=== PATIENT | male | born 1940 | race Caucasian/White ===

== ENCOUNTER 2021-11-16 23:30 | Inpatient (IN) | payer MEDICARE, OTHER ==
[~2021-11-16] VITALS: Ht 170.2 cm; Wt 91.6 kg
[2021-11-16 23:07] VITALS: BP 105/50
--- NOTE | 2021-11-16 23:07 | NUR ---
received patient from 3rd floor OVERFLOW ASHLEIGH status DX:AMS.patient came via bed . patient non verbal oxygen on venturi mask @6 liters=40% FIO2 saturation 98% rr 14,atrial fibrillation on the heart monitor rate 93 temp 99.0 F.non verbal withdraws only to painful stimuli but at times withdraws to light touch no spontaneous eye opening pupils sluggishly reactive at 1 mm in size.Ruffin catheter to bsd .
[~2021-11-16 23:30] MED LIST: ACET-2154 PO; APIX2.5T PO; ASPI81TA31 PO; CEFE1VIA3 IV; CHOL-35 PO; CLOP75TA33 PO; CYAN100T44 PO; FAMO40TA7 PO; FINA5TAB3 PO; FOLI1TAB94 PO; FURO20TA4 PO; GLIP10TA11 PO; LEVE500T9 PO; NEOM28OI32 TP; NUT.237L36 PO; OLAN5TAB3 PO; POTA-88 PO; TAMS-3 PO; THIA100T13 PO
--- NOTE | 2021-11-16 23:46 | NUR ---
DOLLY [facility] CANDY DEPARTMENT MANAGER CALLED AND HE SAID HIS GOING TO PUT ORDERS FOR THE PATIENT PATIENT IS TELE -TD STATUS .
--- NOTE | 2021-11-16 23:50 | NUR ---
fingerstick done 198 results THI BELL aware
[2021-11-17] VITALS (12 sets, daily range): BP systolic 96–167; BP diastolic 53–85
[2021-11-17] MEDS ORDERED: FUROSEMIDE 20 MG/2 ML VIAL IV ONE
[2021-11-17] MEDS ORDERED: MAGNESIUM HYDROXIDE 30 ML LIQUID UDC PO PRN
[2021-11-17] MEDS ORDERED: ACETAMINOPHEN 325 MG TABLET PO PRN
[2021-11-17] MEDS ORDERED: ACETAMINOPHEN 650 MG SUPP.RECT RC PRN
[2021-11-17] MEDS ORDERED: ONDANSETRON 4 MG/2 ML VIAL IV PRN
--- NOTE | 2021-11-17 00:30 | NUR ---
escorted patient via bed with heart monitor ,oxygen and with septic technician for stat CAT-SCAN of the head dx: ams.tolerated test and patient back to his room .
--- NOTE | 2021-11-17 02:00 | NUR ---
pts. called updated with patient ,location bed cc3 informed about visiting hours ,as per she was here yesterday patient was able to eat lunch pts.condition deteriorated during the afternoon . she said she will visit patients today .
--- NOTE | 2021-11-17 03:24 | NUR ---
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
[2021-11-17 05:08] LABS: HEMATOCRIT 29.8 % (36.7-47.1); MEAN CORPUSCULAR HEMOGLOBIN 28.6 uug (23.8-33.4); MEAN CORPUSCULAR VOLUME 88.4 fL (73.0-96.2); PLATELET COUNT (AUTO) 306 K/uL (152-348)
[2021-11-17 05:23] LABS: ALANINE AMINOTRANSFERASE 14 U/L (16-63); ALKALINE PHOSPHATASE 84 U/L (50-136); ASPARTATE AMINOTRANSFERASE 6 U/L (15-37); BILIRUBIN,DIRECT 0.2 mg/dL (0.0-0.2); BILIRUBIN,TOTAL 0.5 mg/dL (0.2-1.0); CARBON DIOXIDE 25 mmol/L (21-32); CHLORIDE 109 mmol/L (98-107); CREATININE 1.7 mg/dL (0.6-1.3); GLUCOSE 189 mg/dL (74-106); MAGNESIUM 1.8 mg/dL (1.8-2.4); PHOSPHOROUS 3.9 mg/dL (2.5-4.9); POTASSIUM 4.7 mmol/L (3.5-5.1); UREA NITROGEN, BLOOD 20 mg/dL (7-18)
--- NOTE | 2021-11-17 05:26 | NUR ---
TITRATE FIO2 @ 3L/M NC , @ 0500 FOR ABG TO BE DONE . Cash YEEP Addendum: 11/17/21 at 0528 by BRAYAN FORTUNE RT Amended: Links added.
[2021-11-17 05:46] LABS: ABG BASE EXCESS -1.4 mmol/L; ABG HCO3 22.1 mmol/L; ABG PCO2 32.7 mmHg (35.0-45.0); ABG PH 7.448 (7.350-7.450); ABG PO2 112.4 mmHg (75.0-100.0); ABG SITE RIGHT RADIAL; ABG TOTAL HEMOGLOBIN 10.6 G/dL (13.5-18.0); MetHb 0.2 % (0.0-1.5); O2Hb 98.3 % (94.0-97.0); VENT MODE Nasal Cannula
--- NOTE | 2021-11-17 07:00 | NUR ---
Received pt. sleeping arousable to touch, patient lethargic. On NC 2 LIter with saturation of 97%. Hemodynamically stable on controlled A-fib with SBP within desired limits. IV line patent. Will continue with care plan.
[2021-11-17] MEDS ORDERED: ALBUTEROL SULFATE 1.25 MG/3 ML NEBU NEB PRN (08:00)
--- NOTE | 2021-11-17 08:00 | NUR ---
Patient seen by car salesperson Dr. Harmon report given orders to continue with care plan received.
[2021-11-17] MEDS: PANTOPRAZOLE SODIUM 40 MG VIAL IV SCH (09:07)
[2021-11-17] MEDS: HEPARIN SODIUM,PORCINE 5,000 UNITS/ML VIAL SQ SCH ×2 (09:07→20:13)
[2021-11-17 11:33] LABS: *BILIRUBIN,URIN NEGATIVE (NEGATIVE); *BLOOD, URINE 2+ (NEGATIVE); *CLARITY,URINE CLEAR (CLEAR); *COLOR,URINE YELLOW (YELLOW); *KETONES,URINE NEGATIVE (NEGATIVE); *UROBILINOGEN,URINE 0.2 E.U./dl (NORMAL); LEUKOCYTE ESTERASE ,URINE 1+ (NEGATIVE); NITRITE, URINE NEGATIVE (NEGATIVE); PH,URINE 6.5 (5.0-8.0); UGLUCOSE NEGATIVE (NEGATIVE)
[2021-11-17 12:05] LABS: *CREATININE,URINE 65.2 mg/dL (30-125)
[2021-11-17 13:00] LABS: RBC,URINE 20-50 /HPF (0-3)
[2021-11-17 13:01] LABS: BACTERIA,URINE FEW /HPF (NONE SEEN)
[2021-11-17 13:02] LABS: SQUAMOUS EPITHELIAL CELL,UR FEW /HPF (NONE SEEN)
--- NOTE | 2021-11-17 19:22 | NUR ---
Attending physician Dr. Velarde, in the unit to see and examine pt. report given orders to continue with care plan received.
--- NOTE | 2021-11-17 20:00 | NUR ---
Racheal () called, update given.
--- NOTE | 2021-11-17 23:00 | NUR ---
Notified Dr Morrison regarding patient's BP 178/86. Per Dr Morrison, to give Vasotec 2.5mg IV Q6 PRN for SBP >150. Noted and carried out.
[2021-11-17] MEDS: REMEDY ESSENTIAL ZINC PASTE 113 GM TP PRN (23:01)
[2021-11-18] VITALS (7 sets, daily range): BP systolic 117–164; BP diastolic 65–81
[2021-11-18] MEDS: ENALAPRILAT DIHYDRATE 1.25 MG/1 ML VIAL IV PRN (02:33)
[2021-11-18 05:02] LABS: HEMATOCRIT 30.4 % (36.7-47.1); MEAN CORPUSCULAR HEMOGLOBIN 28.9 uug (23.8-33.4); MEAN CORPUSCULAR VOLUME 88.5 fL (73.0-96.2); PLATELET COUNT (AUTO) 287 K/uL (152-348)
[2021-11-18 05:24] LABS: ALANINE AMINOTRANSFERASE < 6 U/L (16-63); ALKALINE PHOSPHATASE 80 U/L (50-136); ASPARTATE AMINOTRANSFERASE < 5 U/L (15-37); BILIRUBIN,TOTAL 0.8 mg/dL (0.2-1.0); CARBON DIOXIDE 26 mmol/L (21-32); CHLORIDE 107 mmol/L (98-107); CREATININE 1.6 mg/dL (0.6-1.3); GLUCOSE 118 mg/dL (74-106); MAGNESIUM 1.7 mg/dL (1.8-2.4); PHOSPHOROUS 2.9 mg/dL (2.5-4.9); POTASSIUM 3.7 mmol/L (3.5-5.1); TOTAL PROTEIN, SERUM 6.4 g/dL (6.4-8.2); UREA NITROGEN, BLOOD 23 mg/dL (7-18)
--- NOTE | 2021-11-18 08:19 | NUR ---
Transferred patient from CCU 3 to Room 301B via hospital bed, without any incident. VSS. NAD. Report given to Guerda NATH.
[2021-11-18] MEDS: HEPARIN SODIUM,PORCINE 5,000 UNITS/ML VIAL SQ SCH (08:47)
[2021-11-18] MEDS: PANTOPRAZOLE SODIUM 40 MG VIAL IV SCH (08:47)
[2021-11-18] MEDS ORDERED: MAGNESIUM SULFATE/D5W 100 ML IV SCH (09:15)
[2021-11-18] MEDS: NITROGLYCERIN OINT 1 GM PACKET TP SCH ×4 (09:41→23:35)
[2021-11-18] MEDS ORDERED: OLANZAPINE 5 MG TABLET PO PRN (11:00)
[2021-11-18] MEDS: levETIRAcetam 500 MG TABLET PO SCH ×2 (11:02→20:54)
--- NOTE | 2021-11-18 12:00 | NUR ---
PATIENT SLIGHTLY SOB ON RA. STARTED ON O2 2-3L NC SATURATING 96%. HOSPITALIST MADE AWARE. REMAINS AFIB CONTROLLED ON MONITOR
[2021-11-18] MEDS: IV LACTATED RINGERS SOLUTION 1,000 ML IV PRN (15:31)
[2021-11-18] MEDS: APIXABAN 2.5 MG TABLET PO SCH (16:38)
--- NOTE | 2021-11-18 17:16 | NUR ---
SEEN BY SPEECH THERAPY PER DR AGUIAR CONTINUE NPO EXCEPT MEDS, TOLERATING PO MEDS WITH APPLE SAUCE. NO SIGNS OF CHOKING. NO FURTHER SOB NOTED. CONTROLLED AFIB ON MONITOR
--- NOTE | 2021-11-18 19:30 | NUR ---
Received pt awake, alert and orientedx3. Pt in no acute distress. Pt on 3l nasal cannula. Pt on controlled afib. Iv intact. Caregiver at bedside. Safety and comfort provided. Will continue to monitor.
[2021-11-18] MEDS: TAMSULOSIN HCL 0.4 MG CAP.SR.24H PO SCH (20:54)
[2021-11-18] MEDS: CLOPIDOGREL 75 MG TABLET PO SCH (20:58)
[2021-11-19] VITALS: BP 130/60
[2021-11-19 04:00] VITALS: BP 135/60
[2021-11-19] MEDS: NITROGLYCERIN OINT 1 GM PACKET TP SCH ×3 (05:37→16:50)
[2021-11-19] MEDS: REMEDY ESSENTIAL ZINC PASTE 113 GM TP PRN (05:45)
--- NOTE | 2021-11-19 05:48 | NUR ---
Pt slept comfortably. Pt in no acute distress. Iv intact. Pt on 2l nasal cannula at 98%. Pt tolerated it well. Pt turned and repositioned.Pt on sinus rhythm. Pt catheter intact and draining well.Prescribed medication given and pt tolerated it well. Pt is on npo except meds. Safety and comfort provided. All needs are met. Will endorse to incoming nurse for continuity of care.
--- NOTE | 2021-11-19 06:17 | NUR ---
Pt on controlled afib.
[2021-11-19 06:23] LABS: HEMATOCRIT 27.4 % (36.7-47.1); MEAN CORPUSCULAR HEMOGLOBIN 29.1 uug (23.8-33.4); MEAN CORPUSCULAR VOLUME 88.5 fL (73.0-96.2); PLATELET COUNT (AUTO) 253 K/uL (152-348)
[2021-11-19 06:25] LABS: CARBON DIOXIDE 28 mmol/L (21-32); CHLORIDE 107 mmol/L (98-107); CREATININE 1.5 mg/dL (0.6-1.3); GLUCOSE 110 mg/dL (74-106); PHOSPHOROUS 2.9 mg/dL (2.5-4.9); POTASSIUM 3.4 mmol/L (3.5-5.1); UREA NITROGEN, BLOOD 25 mg/dL (7-18)
[2021-11-19] MEDS: IV LACTATED RINGERS SOLUTION 1,000 ML IV PRN (06:39)
[2021-11-19 07:30] VITALS: BP 149/65
--- NOTE | 2021-11-19 08:00 | NUR ---
RECEIVED PATIENT IN BED AWAKE AND VERBALLY RESPONSIVE ON 2L NC SATURATING 96-97%. TAPERED O2 TO 1L NC AND OBSERVE. CONTROLLED AFIB ON MONITOR
[2021-11-19] MEDS: PANTOPRAZOLE SODIUM 40 MG VIAL IV SCH (08:52)
[2021-11-19] MEDS: MODAFINIL 100 MG TABLET PO SCH (08:52)
[2021-11-19] MEDS: levETIRAcetam 500 MG TABLET PO SCH ×2 (08:52→20:53)
[2021-11-19] MEDS: ASPIRIN 81 MG TAB.CHEW PO SCH (08:52)
[2021-11-19] MEDS: APIXABAN 2.5 MG TABLET PO SCH ×2 (08:53→16:49)
[2021-11-19] MEDS ORDERED: FUROSEMIDE 20 MG TABLET PO SCH (09:00)
[2021-11-19] MEDS ORDERED: POTASSIUM CHLORIDE 50 ML IV SCH (09:15)
[2021-11-19 11:55] VITALS: BP 156/77
--- NOTE | 2021-11-19 12:00 | NUR ---
NO ACUTE CHANGE FROM MORNING ASSESSMENT SEEN BY HOSPITALIST COSME SEE NOTES. PATIENT TOLERATING PUREE DIET WITH SIGNS OF ASPIRATION. CONTROLLED AFIB ON MONITOR
[2021-11-19 16:00] VITALS: BP 143/70
--- NOTE | 2021-11-19 17:28 | NUR ---
PATIENT REMAINS MORE ALERT AND VERBALLY RESPONSIVE, NO SS OF DISTRESS OR ACUTE PAIN CONTROLLED AFIB ON MONITOR
--- NOTE | 2021-11-19 19:30 | NUR ---
Received pt awake. Pt in no acute distress. Pt on 1l nasal cannula. Pt on controlled afib. Iv intact. Caregiver at bedside. Safety and comfort provided. Will continue to monitor.
[2021-11-19 20:00] VITALS: BP 130/57
[2021-11-19] MEDS: ACETAMINOPHEN 325 MG TABLET PO PRN (20:53)
[2021-11-19] MEDS: CLOPIDOGREL 75 MG TABLET PO SCH (20:53)
[2021-11-19] MEDS: TAMSULOSIN HCL 0.4 MG CAP.SR.24H PO SCH (20:53)
[2021-11-20] VITALS: BP 132/62
[2021-11-20] MEDS: NITROGLYCERIN OINT 1 GM PACKET TP SCH ×4 (00:11→17:34)
[2021-11-20 04:00] VITALS: BP 129/56
[2021-11-20] MEDS: PANTOPRAZOLE SODIUM 40 MG TABLET.DR PO SCH (06:03)
--- NOTE | 2021-11-20 06:05 | NUR ---
Pt slept intermittently. Pt in no acute distress. Prescribed medication given and pt tolerated it well. Pt on 0.5l on nasal cannula. Pt on controlled afib.Pt turned and repositioned. Safety and comfort provided. Will Endorse to incoming nurse for continuity fo care.
[2021-11-20 06:22] LABS: CARBON DIOXIDE 28 mmol/L (21-32); CHLORIDE 107 mmol/L (98-107); CREATININE 1.4 mg/dL (0.6-1.3); GLUCOSE 147 mg/dL (74-106); POTASSIUM 3.1 mmol/L (3.5-5.1); UREA NITROGEN, BLOOD 25 mg/dL (7-18)
--- NOTE | 2021-11-20 08:00 | NUR ---
AWAKE ALERT AND VERBALLY RESPONSIVE, CONFUSED X3 WITH CONTINUOUS O2 AT 1L NC SATURATING 94-96%. CONTINUE TELE OBSERVATION CONTROLLED AFIB ON MONITOR
[2021-11-20] MEDS: levETIRAcetam 500 MG TABLET PO SCH ×2 (08:15→20:16)
[2021-11-20] MEDS: ASPIRIN 81 MG TAB.CHEW PO SCH (08:15)
[2021-11-20] MEDS: MODAFINIL 100 MG TABLET PO SCH (08:15)
[2021-11-20] MEDS: APIXABAN 2.5 MG TABLET PO SCH ×2 (08:16→17:34)
[2021-11-20] MEDS ORDERED: POTASSIUM CHLORIDE 20 MEQ POWDER PACKET PO ONE (10:30)
[2021-11-20 10:59] VITALS: BP 146/70
--- NOTE | 2021-11-20 11:30 | NUR ---
SEEN BY HOSPITALIST FOR FOLLOW-UP, CONTINUE CURRENT TX PLAN PT, OT
--- NOTE | 2021-11-20 12:06 | NUR ---
catheter removed per hospitalist and observe. laila flanagan on monitor
--- NOTE | 2021-11-20 13:45 | NUR ---
CAREGIVER AT BEDSIDE FEEDING PATIENT WITH MATT AND ELIZABETH WHEN PATIENT SUDDENLY GETS SOB AND GURGLING WITH SECRETION. PLACE ON HIGH FOWLERS POSITION, SUCTIONING DONE AND OBTAINED LARGE AMOUNT OF THICK SECRETION, CHEST XRAY DONE, AWAITING FOR RESULTS. PLACED ON 3L
[2021-11-20] MEDS ORDERED: BUMETANIDE 1 MG/4 ML VIAL IV ONE (14:00)
--- NOTE | 2021-11-20 15:00 | NUR ---
PATIENT RESTING COMFORTABLY, ALERT AND VERBALLY RESPONSIVE NO SIGNS OF DISTRESS, REMAINS CONTROLLED A-FIB ON MONITOR
[2021-11-20 15:38] VITALS: BP 152/66
--- NOTE | 2021-11-20 18:09 | NUR ---
TRIED FEEDING PATIENT WITH SPOON SMALL AT A TIME WITH PUREE THICK LIQUID, PATIENT STARTED COUGHING AND GURGLING. MD NOTIFIED, AWAITING CALL BACK
[2021-11-20 20:11] VITALS: BP 115/82
[2021-11-20] MEDS: CLOPIDOGREL 75 MG TABLET PO SCH (20:16)
[2021-11-20] MEDS: TAMSULOSIN HCL 0.4 MG CAP.SR.24H PO SCH (20:16)
[2021-11-21] VITALS (7 sets, daily range): BP systolic 104–172; BP diastolic 66–84
[2021-11-21] MEDS: ENALAPRILAT DIHYDRATE 1.25 MG/1 ML VIAL IV PRN (00:40)
[2021-11-21] MEDS: NITROGLYCERIN OINT 1 GM PACKET TP SCH ×4 (00:40→18:09)
[2021-11-21] MEDS: PANTOPRAZOLE SODIUM 40 MG TABLET.DR PO SCH (06:15)
--- NOTE | 2021-11-21 06:15 | NUR ---
Pt rested well in between care; no acute distress; incontinence care done; aspiration precaution observed; protonix po not given because it can not be crushed; will endorse to next shift for substitute;
[2021-11-21 06:41] LABS: CARBON DIOXIDE 29 mmol/L (21-32); CHLORIDE 107 mmol/L (98-107); CREATININE 1.6 mg/dL (0.6-1.3); GLUCOSE 257 mg/dL (74-106); POTASSIUM 3.8 mmol/L (3.5-5.1); UREA NITROGEN, BLOOD 26 mg/dL (7-18)
[2021-11-21] MEDS: MODAFINIL 100 MG TABLET PO SCH (08:57)
[2021-11-21] MEDS: ASPIRIN 81 MG TAB.CHEW PO SCH (09:00)
[2021-11-21] MEDS: levETIRAcetam 500 MG TABLET PO SCH ×2 (09:00→20:18)
[2021-11-21] MEDS: APIXABAN 2.5 MG TABLET PO SCH ×2 (09:04→18:04)
[2021-11-21 09:31] LABS: HEMATOCRIT 29.9 % (36.7-47.1); MEAN CORPUSCULAR HEMOGLOBIN 28.6 uug (23.8-33.4); MEAN CORPUSCULAR VOLUME 88.9 fL (73.0-96.2); PLATELET COUNT (AUTO) 334 K/uL (152-348)
[2021-11-21 09:37] LABS: MAGNESIUM 1.8 mg/dL (1.8-2.4); PHOSPHOROUS 3.5 mg/dL (2.5-4.9)
[2021-11-21] MEDS ORDERED: CEFTRIAXONE 1 G in IV DEXTROSE 5% 50 ML IV SCH ×2 (15:00→16:00)
[2021-11-21] MEDS: IV LACTATED RINGERS SOLUTION 1,000 ML IV PRN (17:02)
[2021-11-21] MEDS: GLUCERNA SHAKE 237 ML CAN PO SCH (18:02)
[2021-11-21] MEDS: TAMSULOSIN HCL 0.4 MG CAP.SR.24H PO SCH (20:17)
[2021-11-21] MEDS: CLOPIDOGREL 75 MG TABLET PO SCH (20:18)
--- NOTE | 2021-11-21 20:30 | NUR ---
Pt comfortable in bed. Caregiver on bedside. Pt is on 1 LPM/NC saturating at 95%. No SOB or respiratory distress noted. VSS. IV intact and patent. All needs attended. Safety measures maintained. Will continue to monitor.
[2021-11-22] MEDS: NITROGLYCERIN OINT 1 GM PACKET TP SCH ×4 (00:33→16:24)
[2021-11-22 00:46] VITALS: BP 150/71
[2021-11-22 04:42] VITALS: BP 146/68
[2021-11-22 05:44] LABS: HEMATOCRIT 27.1 % (36.7-47.1); MEAN CORPUSCULAR HEMOGLOBIN 28.9 uug (23.8-33.4); MEAN CORPUSCULAR VOLUME 87.7 fL (73.0-96.2); PLATELET COUNT (AUTO) 261 K/uL (152-348)
[2021-11-22] MEDS: IV LACTATED RINGERS SOLUTION 1,000 ML IV PRN ×2 (05:44→21:54)
[2021-11-22 06:07] LABS: CARBON DIOXIDE 29 mmol/L (21-32); CHLORIDE 109 mmol/L (98-107); CREATININE 1.4 mg/dL (0.6-1.3); GLUCOSE 185 mg/dL (74-106); MAGNESIUM 1.7 mg/dL (1.8-2.4); PHOSPHOROUS 2.5 mg/dL (2.5-4.9); POTASSIUM 3.6 mmol/L (3.5-5.1); UREA NITROGEN, BLOOD 27 mg/dL (7-18)
[2021-11-22] MEDS: PANTOPRAZOLE SODIUM 40 MG TABLET.DR PO SCH (06:35)
--- NOTE | 2021-11-22 08:00 | NUR ---
PATIENT AWAKE AND VERBALLY RESPONSIVE BUT REFUSED TO OPEN MOUTH TO EAT, CONFUSED AND TRYING TO PULL O2 . O2 AT 1L NC SATURATING 95%. CONTROLLED AFIB ON MONITOR
[2021-11-22] MEDS: ASPIRIN 81 MG TAB.CHEW PO SCH (08:48)
[2021-11-22] MEDS: APIXABAN 2.5 MG TABLET PO SCH ×2 (08:53→16:08)
[2021-11-22] MEDS: levETIRAcetam 500 MG TABLET PO SCH ×2 (08:54→20:21)
[2021-11-22] MEDS: GLUCERNA SHAKE 237 ML CAN PO SCH ×3 (08:54→16:08)
[2021-11-22] MEDS: MODAFINIL 100 MG TABLET PO SCH (09:00)
[2021-11-22] MEDS: MAGNESIUM SULFATE/D5W 100 ML IV SCH ×2 (09:29→10:18)
[2021-11-22 11:13] VITALS: BP 147/76
--- NOTE | 2021-11-22 12:00 | NUR ---
NO ACUTE CHANGE FROM AM ASSESSMENT
--- NOTE | 2021-11-22 13:58 | NUR ---
SEEN BY DR AGUIAR FOR FOLLOW-UP SEE NOTES
[2021-11-22] MEDS ORDERED: CEFEPIME HCL 1 G in IV DEXTROSE 5% 50 ML IV SCH (14:00)
[2021-11-22] MEDS: CEFEPIME HCL 1 G in IV DEXTROSE 5% 50 ML IV SCH (14:07)
[2021-11-22 15:09] VITALS: BP 101/61
--- NOTE | 2021-11-22 18:04 | NUR ---
PATIENT MORE AWAKE AND VERBALLY RESPONSIVE, ASSISTED WITH DINNER WITH NO SIGNS OF ASPIRATION, TOLERATING PUREE DIET. AFIB CONTROLLED ON MONITOR
--- NOTE | 2021-11-22 19:22 | NUR ---
Received patient in bed awake, alert and oriented x 1. Respiration even and non labored, no noted acute distress. Skin is dry and warm to touch. Bed in locked and low position. Call light within reach.
[2021-11-22 19:49] VITALS: BP 156/72
[2021-11-22] MEDS: CLOPIDOGREL 75 MG TABLET PO SCH (20:21)
[2021-11-22] MEDS: TAMSULOSIN HCL 0.4 MG CAP.SR.24H PO SCH (20:21)
[2021-11-22] MEDS: ENALAPRILAT DIHYDRATE 1.25 MG/1 ML VIAL IV PRN (20:23)
[2021-11-22] MEDS: ACETAMINOPHEN 325 MG TABLET PO PRN (21:54)
[2021-11-23] MEDS: NITROGLYCERIN OINT 1 GM PACKET TP SCH ×4 (00:15→17:25)
[2021-11-23] MEDS: CEFEPIME HCL 1 G in IV DEXTROSE 5% 50 ML IV SCH ×2 (01:14→12:24)
[2021-11-23 04:25] VITALS: BP 138/78
[2021-11-23] MEDS: PANTOPRAZOLE SODIUM 40 MG TABLET.DR PO SCH (06:05)
--- NOTE | 2021-11-23 06:39 | NUR ---
Slept well, no signs of pain/discomfort noted. No noted SOB, HOB elevated to patient's comfort. JOSE midline intact and patent with IVF infusing well. Needs attended and anticipated. Call light place within easy reach.
[2021-11-23 07:04] LABS: HEMATOCRIT 26.7 % (36.7-47.1); MEAN CORPUSCULAR HEMOGLOBIN 29.5 uug (23.8-33.4); MEAN CORPUSCULAR VOLUME 87.7 fL (73.0-96.2); PLATELET COUNT (AUTO) 273 K/uL (152-348)
[2021-11-23 07:17] LABS: CARBON DIOXIDE 33 mmol/L (21-32); CHLORIDE 107 mmol/L (98-107); CREATININE 1.4 mg/dL (0.6-1.3); GLUCOSE 189 mg/dL (74-106); MAGNESIUM 2.1 mg/dL (1.8-2.4); POTASSIUM 3.4 mmol/L (3.5-5.1); UREA NITROGEN, BLOOD 27 mg/dL (7-18)
[2021-11-23] MEDS: ASPIRIN 81 MG TAB.CHEW PO SCH (08:37)
[2021-11-23] MEDS: levETIRAcetam 500 MG TABLET PO SCH ×2 (08:37→21:28)
[2021-11-23] MEDS: MODAFINIL 100 MG TABLET PO SCH (08:37)
[2021-11-23] MEDS: APIXABAN 2.5 MG TABLET PO SCH ×2 (08:38→17:25)
[2021-11-23] MEDS: GLUCERNA SHAKE 237 ML CAN PO SCH ×3 (08:38→17:25)
[2021-11-23 08:42] VITALS: BP 125/59
[2021-11-23] MEDS ORDERED: POTASSIUM CHLORIDE 20 MEQ POWDER PACKET PO ONE (09:15)
--- NOTE | 2021-11-23 12:00 | NUR ---
Patient is alert and oriented with some confusion and difficulty expressing thoughts. He is awake though out shift. No c/o pain. No SOB. Nitroglycerin ointment continued, sites alternated. , daughter and family friend at bedside, alternating visits. Update on health status provided to and daughter. All needs attended, call light within reach.
[2021-11-23 16:19] VITALS: BP 137/84
--- NOTE | 2021-11-23 16:30 | NUR ---
Spoke to per MD request to asses home situation post discharge. is very upset and verbalizes she does not want patient home if he can not walk or get in and out of a chair and believe he should stay hospitalized to continue ABX treatment. Attempted to explain to other options but she hung up, MD made aware. Spoke to CM who called and left a vm about placement options.
--- NOTE | 2021-11-23 18:00 | NUR ---
Dr. Vish Uriarte in unit and able to talk to about placement in SNF or ARU unit of this hospital for rehabilitation prior to going home. agreed for case management to follow up tomorrow in Am.
--- NOTE | 2021-11-23 18:53 | NUR ---
patient on telemetry, NSR throughout day.
--- NOTE | 2021-11-23 19:30 | NUR ---
RECEIVED PATIENT IN BED. AAOX3. NO ACUTE DISTRESS NOTED AT THIS TIME. ON 1L O2. ON TELEMONITOR, SHOWING ATRIAL FIBRILLATION CONTROLLED. IV ACCESS TO JOSE ML, PATENT AND INTACT RUNNING LACTATED RINGERS AT 80CC/HR. SEIZURE PRECAUTIONS IN PLACE. SIDE RAILS PADDED. SAFETY PRECAUTIONS INITIATED. MONITORED CLOSELY.
[2021-11-23 20:47] VITALS: BP 167/77
[2021-11-23] MEDS: TAMSULOSIN HCL 0.4 MG CAP.SR.24H PO SCH (21:28)
[2021-11-23] MEDS: CLOPIDOGREL 75 MG TABLET PO SCH (21:28)
[2021-11-23 21:30] VITALS: BP 147/60
--- NOTE | 2021-11-23 22:30 | NUR ---
URINE SPECIMEN COLLECTED USING STERILE TECHNIQUE VIA STRAIGHT CATHETER, URINE SENT TO LAB.
--- NOTE | 2021-11-23 22:35 | NUR ---
PATIENT'S CALLED AND INQUIRED REGARDING PATIENT'S CURRENT HEALTH STATUS, BLOOD PRESSURE WAS 147/60MMHG AND BLOOD SUGAR WAS 189 DURING DAY SHIFT, AND THEN TAKEN AGAIN AT 2230 SHOWING 254. PATIENT'S INQUIRED IF PATIENT HAS BEEN RECEIVING INSULIN. ADVISED PATIENT'S THAT THE PATIENT IS CURRENTLY NOT TAKING ANY BLOOD SUGAR MEDICATION. EXPRESSED CONCERNED AND ASKED IF MD CAN ORDER BLOOD SUGAR MEDICATION. IVONE VALLADARES WAS MADE AWARE. AWAIT RESPONSE.
[2021-11-24] MEDS: NITROGLYCERIN OINT 1 GM PACKET TP SCH ×5 (00:18→23:26)
[2021-11-24 00:48] VITALS: BP 150/83
[2021-11-24] MEDS: CEFEPIME HCL 1 G in IV DEXTROSE 5% 50 ML IV SCH ×2 (00:52→12:10)
[2021-11-24] MEDS: IV LACTATED RINGERS SOLUTION 1,000 ML IV PRN ×2 (02:00→17:06)
[2021-11-24 04:45] VITALS: BP 112/76
[2021-11-24 06:22] LABS: HEMATOCRIT 26.8 % (36.7-47.1); MEAN CORPUSCULAR HEMOGLOBIN 28.5 uug (23.8-33.4); MEAN CORPUSCULAR VOLUME 86.8 fL (73.0-96.2); PLATELET COUNT (AUTO) 305 K/uL (152-348)
[2021-11-24] MEDS: PANTOPRAZOLE SODIUM 40 MG TABLET.DR PO SCH (06:36)
[2021-11-24 06:39] LABS: CREATININE 1.3 mg/dL (0.6-1.3); MAGNESIUM 1.9 mg/dL (1.8-2.4); PHOSPHOROUS 3.3 mg/dL (2.5-4.9); POTASSIUM 3.5 mmol/L (3.5-5.1)
--- NOTE | 2021-11-24 06:45 | NUR ---
PATIENT SLEPT THROUGH THE NIGHT. IN DEEP SLEEP, AROUSED BY DEEP TOUCH/PINCH. AFIBRILLATION CONTROLLED ON TELEMONITOR. ON 1L O2 VIA NASAL CANNULA. IVF INFUSING WELL. NO ORDERS FROM DOCTOR REGARDING DIABETES MEDICATION. SAFETY PRECAUTIONS MAINTAINED.
--- NOTE | 2021-11-24 06:55 | NUR ---
BED SCALE NOTED TO BE BROKEN. ADVISED DAY SHIFT ACCORDINGLY.
--- NOTE | 2021-11-24 07:30 | NUR ---
Received pt. sleeping and upon assessment pt. semi-lethargic as reported this is pt's baseline during the day and He seems more awake at night. Addendum: 11/24/21 at 1114 by YESICA SALMERON RN responds to deep painful stimuli and remains awake for a couple of minutes.
[2021-11-24 08:00] VITALS: BP 153/69
--- NOTE | 2021-11-24 09:20 | NUR ---
with medications administration this morning pt. noted with coughing and delay swallowing.
[2021-11-24] MEDS: APIXABAN 2.5 MG TABLET PO SCH ×2 (09:22→17:14)
[2021-11-24] MEDS: levETIRAcetam 500 MG TABLET PO SCH ×2 (09:22→20:30)
[2021-11-24] MEDS: MODAFINIL 100 MG TABLET PO SCH (09:22)
[2021-11-24] MEDS: ASPIRIN 81 MG TAB.CHEW PO SCH (09:22)
[2021-11-24] MEDS: GLUCERNA SHAKE 237 ML CAN PO SCH ×3 (09:23→17:00)
--- NOTE | 2021-11-24 11:07 | NUR ---
After been evaluated by speech therapist recommendations to keep pt. NPO received and as stated She'll place an order.
[2021-11-24 12:00] VITALS: BP 162/38
[2021-11-24] MEDS ORDERED: MODA100T29 PO (12:43)
[2021-11-24] MEDS ORDERED: CEFE1FRO IV (12:43)
[2021-11-24 15:35] VITALS: BP 156/92
--- NOTE | 2021-11-24 18:30 | NUR ---
Both pt's daughter and pt's updated on care plan. Daughter at bedside and over the phone. temperature recheck as requested 98.8. Awaiting attending to round.
--- NOTE | 2021-11-24 18:57 | NUR ---
Report will be given to incoming rn. pt. left AAOx2. no c/of pain. afebrile. awaiting to be seen by .
--- NOTE | 2021-11-24 19:30 | NUR ---
received patient lying in bed. Awake but appears weak and lethargic. Opens eye but not able to make eye contact. Non-verbal and withdrawn. In no apparent distress. Uses abdominal muscle to breath. O2 sat at 92% on RA. Controlled A. fib on tele with HR of 119/min. Needs assessed and anticipated to. Safety measure initiated and call light within reached.
[2021-11-24 20:06] VITALS: BP 163/90
[2021-11-24] MEDS: TAMSULOSIN HCL 0.4 MG CAP.SR.24H PO SCH (20:30)
[2021-11-24] MEDS: CLOPIDOGREL 75 MG TABLET PO SCH (20:31)
--- NOTE | 2021-11-24 23:20 | NUR ---
Noted patient O2 sat at 89-90% on RA. Applied O2 at 2LPM via NC. O2 sat up to 98%. Continue to monitor.
[2021-11-25] VITALS (9 sets, daily range): BP systolic 141–182; BP diastolic 61–103
[2021-11-25] MEDS: CEFEPIME HCL 1 G in IV DEXTROSE 5% 50 ML IV SCH ×2 (00:13→13:09)
[2021-11-25] MEDS: ENALAPRILAT DIHYDRATE 1.25 MG/1 ML VIAL IV PRN ×3 (00:50→21:58)
--- NOTE | 2021-11-25 00:53 | NUR ---
Taper O2 to 1LPM via NC. Patient O2 sat remains 100%. Continue to monitor.
--- NOTE | 2021-11-25 04:30 | NUR ---
Report given to PORTILLO Still.
--- NOTE | 2021-11-25 04:45 | NUR ---
Patient transferred to CCU unit bed 4, still telemetry status.
[2021-11-25] MEDS: NITROGLYCERIN OINT 1 GM PACKET TP SCH ×3 (05:30→17:43)
[2021-11-25] MEDS: PANTOPRAZOLE SODIUM 40 MG TABLET.DR PO SCH (06:02)
--- NOTE | 2021-11-25 06:23 | NUR ---
Transferred patient to CCU overflow tele.Opens eye but Non-verbal.O2 at 1 LPM via NC saturating at 98 %, continue to use abdominal muscle to breath . Controlled A. fib on tele.Incontinent to both B & B. Voided well.Pericare rendered and repositioned patient.NPO as ordered. Midline on right UA with LR running at 80cc/hr.Needs anticipated and met accordingly.Continue Safety measures . Call light within reached.
--- NOTE | 2021-11-25 08:00 | NUR ---
Lethargic, room air O2 sat 88%. Placed back on O2 0.5L/NC with O2 sat of 92%. IVF infusing well.
--- NOTE | 2021-11-25 08:46 | NUR ---
ST re assessed, still NPO maintained. PT at bedside, exercises done, unable to follow
[2021-11-25] MEDS: MODAFINIL 100 MG TABLET PO SCH (09:00)
[2021-11-25] MEDS: GLUCERNA SHAKE 237 ML CAN PO SCH ×3 (09:00→17:00)
[2021-11-25] MEDS: APIXABAN 2.5 MG TABLET PO SCH (09:00)
[2021-11-25] MEDS: levETIRAcetam 500 MG TABLET PO SCH (09:00)
[2021-11-25] MEDS ORDERED: DEXTROSE 50% 50 ML DISP.SYRIN IV PRN (12:00)
--- NOTE | 2021-11-25 12:30 | NUR ---
Accu check done with BG 151, covered with sliding scale. NPO maintained. Off IVF at this time. Keppra changed to IV.
[2021-11-25] MEDS: levETIRAcetam IV 500 MG in IV DEXTROSE 5% 100 ML IV SCH ×2 (12:56→20:34)
[2021-11-25] MEDS: BLOOD SUGAR DIAGNOSTIC 1 EACH STRIP VI SCH ×2 (12:56→17:43)
[2021-11-25] MEDS: ENOXAPARIN SODIUM 40 MG/0.4 ML DISP.SYRIN SQ SCH (12:57)
[2021-11-25] MEDS: INSULIN REGULAR, HUMAN 300 UNIT/3 ML VIAL SQ PRN ×2 (12:58→17:44)
--- NOTE | 2021-11-25 14:00 | NUR ---
Bed bath given, repositioned comfortably.
--- NOTE | 2021-11-25 18:18 | NUR ---
O2 titrated to 0.5L/NC O2sat 92% and noted tachypnia; placed back to 1L/NC with O2 sat of 96%. Oral care done. Incontinence care done. Repositioned comfortably
--- NOTE | 2021-11-25 19:30 | NUR ---
Received pt in no acute distress. Iv intact.Pt on .5 nasal cannula. Pt arousable to touch.Waking up and able to track. Pt not answering back to questions. Safety and comfort provided. Will continue to monitor.
--- NOTE | 2021-11-25 19:31 | NUR ---
Pt on controlled afib.
[2021-11-25] MEDS: TAMSULOSIN HCL 0.4 MG CAP.SR.24H PO SCH (20:57)
[2021-11-25] MEDS: CLOPIDOGREL 75 MG TABLET PO SCH (20:58)
--- NOTE | 2021-11-25 21:30 | NUR ---
called and ask update regarding pt.
--- NOTE | 2021-11-25 22:14 | NUR ---
at 2158H Vasotec 2.5 mg prn given to pt for 166/90 blood pressure. Pt in no acute distress. Will continue to monitor.
[2021-11-26] VITALS (8 sets, daily range): BP systolic 125–164; BP diastolic 70–91
[2021-11-26] MEDS: NITROGLYCERIN OINT 1 GM PACKET TP SCH ×4 (00:03→18:09)
[2021-11-26] MEDS: BLOOD SUGAR DIAGNOSTIC 1 EACH STRIP VI SCH ×4 (00:04→18:13)
[2021-11-26] MEDS: CEFEPIME HCL 1 G in IV DEXTROSE 5% 50 ML IV SCH ×2 (00:10→12:20)
[2021-11-26 05:10] LABS: HEMATOCRIT 28.7 % (36.7-47.1); MEAN CORPUSCULAR HEMOGLOBIN 28.5 uug (23.8-33.4); PLATELET COUNT (AUTO) 340 K/uL (152-348)
[2021-11-26 05:17] LABS: CREATININE 1.3 mg/dL (0.6-1.3); MAGNESIUM 1.7 mg/dL (1.8-2.4); PHOSPHOROUS 2.7 mg/dL (2.5-4.9); POTASSIUM 3.6 mmol/L (3.5-5.1)
[2021-11-26] MEDS: PANTOPRAZOLE SODIUM 40 MG TABLET.DR PO SCH (06:03)
--- NOTE | 2021-11-26 06:11 | NUR ---
Pt in no acute distress. Iv intact. Pt arousable to touch. Pt nonverbal. Pt observed coughing. PT turned and repositioned. Pt on 1 L Oxygen at 94%.Safety and comfort provided. All needs are met. Will endorse to incoming nurse for continuity of care.
--- NOTE | 2021-11-26 07:15 | NUR ---
Received pt. lethargic barely responsive to deep painful stimuli. On 1L oxygen via NC. saturation above 92%. Hemodynamically stable on controlled A-FIB. with sbp within desire limits. IV line patent. As reported pt. NPO.
[2021-11-26] MEDS ORDERED: FUROSEMIDE 20 MG/2 ML VIAL IV ONE (08:30)
[2021-11-26] MEDS: MODAFINIL 100 MG TABLET PO SCH (09:00)
[2021-11-26] MEDS: GLUCERNA SHAKE 237 ML CAN PO SCH ×3 (09:00→17:00)
[2021-11-26] MEDS: levETIRAcetam IV 500 MG in IV DEXTROSE 5% 100 ML IV SCH (09:05)
[2021-11-26] MEDS: POTASSIUM CHLORIDE 50 ML IV SCH ×2 (09:06→09:53)
[2021-11-26 09:11] LABS: ABG BASE EXCESS 3.7 mmol/L; ABG HCO3 27.6 mmol/L; ABG PCO2 38.7 mmHg (35.0-45.0); ABG PH 7.471 (7.350-7.450); ABG PO2 60.9 mmHg (75.0-100.0); ABG SITE RIGHT RADIAL; COHb 0.2 % (0.5-1.5); MetHb 0.2 % (0.0-1.5); O2Hb 91.3 % (94.0-97.0); VENT MODE Nasal Cannula
[2021-11-26] MEDS: MAGNESIUM SULFATE/D5W 100 ML IV SCH ×2 (09:32→10:33)
[2021-11-26] MEDS: ENOXAPARIN SODIUM 40 MG/0.4 ML DISP.SYRIN SQ SCH (09:38)
--- NOTE | 2021-11-26 12:00 | NUR ---
Attending ANAT Elise in the unit to follow up with pt. No new orders received. Addendum: 11/26/21 at 1558 by YESICA SALMERON RN orders for CT head received and MD aware CT out of service at this time.
--- NOTE | 2021-11-26 15:53 | NUR ---
Pt's at bedside and as requested attending notified of her request to to have attending to call her for and update of her 's care plan. Attending called and provided with number to call.
--- NOTE | 2021-11-26 18:57 | NUR ---
Left patient Awake, alert oriented to name. Hemodynamically stable HR in the 70's 80's controlled A-fib. On NC 3 liters, no tachypnea saturation above desire limits. Afebrile. IV line patent. Will endorse care to incoming shift.
--- NOTE | 2021-11-26 19:15 | NUR ---
Received report from Nimco NATH. Pt is in bed, awake but lethargic, respirations unlabored and equal. No distress noted. On 3L NC, satting well. Diaper is clean and dry. IV site is intact.
[2021-11-26] MEDS: TAMSULOSIN HCL 0.4 MG CAP.SR.24H PO SCH (20:44)
[2021-11-26] MEDS: CLOPIDOGREL 75 MG TABLET PO SCH (20:44)
--- NOTE | 2021-11-26 21:30 | NUR ---
Bed bath done and linens changed. Diaper changed and patient clean and dry
--- NOTE | 2021-11-26 23:15 | NUR ---
Pt transferred to 3rd floor bed 310 in stable condition. Report given to Kecia NATH.
[2021-11-27] MEDS: BLOOD SUGAR DIAGNOSTIC 1 EACH STRIP VI SCH ×4 (00:10→17:27)
[2021-11-27] MEDS: NITROGLYCERIN OINT 1 GM PACKET TP SCH ×4 (00:12→17:20)
[2021-11-27] MEDS: CEFEPIME HCL 1 G in IV DEXTROSE 5% 50 ML IV SCH (00:35)
[2021-11-27 04:21] VITALS: BP 122/79
--- NOTE | 2021-11-27 05:15 | NUR ---
Patient transferred from ICU to room 310 at 2320 in stable condition. VSS. Alert x1 with confusion. No adverse side effects to antibiotic treatment for UTI. Slept through the night. Calm and cooperative. Skin intact. On NPO diet per report failed swallow eval. Blood sugar WNL.
[2021-11-27] MEDS: PANTOPRAZOLE SODIUM 40 MG TABLET.DR PO SCH (06:14)
[2021-11-27 06:57] LABS: HEMATOCRIT 30.2 % (36.7-47.1); MEAN CORPUSCULAR HEMOGLOBIN 28.6 uug (23.8-33.4); MEAN CORPUSCULAR VOLUME 86.8 fL (73.0-96.2); PLATELET COUNT (AUTO) 359 K/uL (152-348)
[2021-11-27 07:08] LABS: CREATININE 1.2 mg/dL (0.6-1.3); MAGNESIUM 1.9 mg/dL (1.8-2.4); PHOSPHOROUS 2.8 mg/dL (2.5-4.9); POTASSIUM 3.3 mmol/L (3.5-5.1)
[2021-11-27] MEDS ORDERED: FUROSEMIDE 20 MG/2 ML VIAL IV ONE (08:30)
[2021-11-27] MEDS: POTASSIUM CHLORIDE 50 ML IV SCH ×4 (08:33→13:04)
[2021-11-27] MEDS: ENALAPRILAT DIHYDRATE 1.25 MG/1 ML VIAL IV PRN ×2 (08:55→20:10)
[2021-11-27] MEDS: MODAFINIL 100 MG TABLET PO SCH (08:56)
[2021-11-27] MEDS: GLUCERNA SHAKE 237 ML CAN PO SCH ×3 (08:56→16:12)
[2021-11-27] MEDS: ENOXAPARIN SODIUM 40 MG/0.4 ML DISP.SYRIN SQ SCH (08:57)
[2021-11-27 11:57] VITALS: BP 175/78
[2021-11-27] MEDS ORDERED: CEFEPIME HCL 2 G in IV DEXTROSE 5% 100 ML IV SCH (13:00)
[2021-11-27 15:40] VITALS: BP 126/60
--- NOTE | 2021-11-27 18:30 | NUR ---
Pt is alert, opens his eyes and responds to stimuli. Pt is able to squeeze my hand and turn on his own. Per caregiver, pt';s baseline is ambulatory, a/o x 3, no difficulty eating. Pt is currently NPO status with no fluids due to diuresing. MD aware of diabetic and NPO status. Blood sugars have been in normal range 118-127. Pt urinating in diaper several times during shift. Comfort measures provided, no signs of acute distress. Caregiver at bedside at this time.
[2021-11-27] MEDS: TAMSULOSIN HCL 0.4 MG CAP.SR.24H PO SCH (20:01)
[2021-11-27] MEDS: CLOPIDOGREL 75 MG TABLET PO SCH (20:01)
[2021-11-27 21:28] VITALS: BP 181/98
[2021-11-28] MEDS: NITROGLYCERIN OINT 1 GM PACKET TP SCH ×4 (00:11→17:25)
[2021-11-28] MEDS: BLOOD SUGAR DIAGNOSTIC 1 EACH STRIP VI SCH ×4 (00:16→17:33)
[2021-11-28 00:19] VITALS: BP 166/82
[2021-11-28 04:51] VITALS: BP 148/72
--- NOTE | 2021-11-28 05:59 | NUR ---
Slept throughout the night. No distress noted. Arousable to touch. Unable to follow commands. IV site intact. Afib controlled on monitor. Safety maintained. Will endorse to day shift.
[2021-11-28] MEDS: PANTOPRAZOLE SODIUM 40 MG TABLET.DR PO SCH (06:06)
[2021-11-28 06:40] LABS: HEMATOCRIT 33.5 % (36.7-47.1); MEAN CORPUSCULAR HEMOGLOBIN 28.1 uug (23.8-33.4); MEAN CORPUSCULAR VOLUME 86.5 fL (73.0-96.2); PLATELET COUNT (AUTO) 415 K/uL (152-348)
[2021-11-28 07:15] LABS: CARBON DIOXIDE 29 mmol/L (21-32); CHLORIDE 102 mmol/L (98-107); CREATININE 1.4 mg/dL (0.6-1.3); GLUCOSE 95 mg/dL (74-106); MAGNESIUM 1.8 mg/dL (1.8-2.4); PHOSPHOROUS 3.2 mg/dL (2.5-4.9); POTASSIUM 4.5 mmol/L (3.5-5.1); UREA NITROGEN, BLOOD 19 mg/dL (7-18)
[2021-11-28] MEDS: MODAFINIL 100 MG TABLET PO SCH (09:00)
[2021-11-28] MEDS: GLUCERNA SHAKE 237 ML CAN PO SCH ×3 (09:00→17:00)
[2021-11-28] MEDS: ENOXAPARIN SODIUM 40 MG/0.4 ML DISP.SYRIN SQ SCH (09:45)
--- NOTE | 2021-11-28 11:08 | NUR ---
WOUND CARE CONSULT: PT PRESENTS WITH RASH TO PERINEUM AND GROIN FOLDS. RECOMMENDATIONS MADE FOR SKIN PROTECTION. DISCUSSED WITH NURSING STAFF. MD IN AGREEMENT WITH PLAN OF CARE.
--- NOTE | 2021-11-28 12:04 | NUR ---
Pt is non verbal, opens eyes when spoken to and with touch. Pt will bee going for an MRI of brain without contrast for altered mental status. clearing supervisor will be around 1330.
--- NOTE | 2021-11-28 14:29 | NUR ---
Pt picked up by ambulance to go to MRI in [place]. MRI of brain without contrast for altered mental status.
[2021-11-28 17:18] VITALS: BP 155/86
--- NOTE | 2021-11-28 17:20 | NUR ---
pt returned from MRI. Vitals : BP 155/86 HR 105 rr 20 SpO2 99% on 2L NC.
[2021-11-28] MEDS: CLOTRIMAZOLE 1% CREAM 30 GM TUBE TOP SCH (17:24)
[2021-11-28 20:00] VITALS: BP 143/94
--- NOTE | 2021-11-28 20:00 | NUR ---
RECEIVED PATIENT AWAKE IN BED. NON-VERBAL, FLAT EFFECT. VS WNL. MID-LINE NOTED TO RIGHT UPPER ARM, INTACT. PATIENT ON O2 2L NC SATING WELL. NO RESP. DISTRESS NOTED. NO S/S OF PAIN OR DISCOMFORT. CALL LIGHT IN REACH. BED ALARM ON. ALL NEEDS ATTENDED. WILL CONTINUE TO MONITOR AND ASSESS.
[2021-11-28] MEDS: CLOPIDOGREL 75 MG TABLET PO SCH (20:59)
[2021-11-28] MEDS: TAMSULOSIN HCL 0.4 MG CAP.SR.24H PO SCH (20:59)
[2021-11-29] MEDS: BLOOD SUGAR DIAGNOSTIC 1 EACH STRIP VI SCH ×6 (00:09→23:56)
[2021-11-29] MEDS: NITROGLYCERIN OINT 1 GM PACKET TP SCH ×5 (00:15→23:50)
[2021-11-29 04:00] VITALS: BP 140/71
[2021-11-29] MEDS: PANTOPRAZOLE SODIUM 40 MG TABLET.DR PO SCH (06:00)
[2021-11-29 07:36] LABS: CREATININE 1.3 mg/dL (0.6-1.3); POTASSIUM 3.8 mmol/L (3.5-5.1)
--- NOTE | 2021-11-29 08:20 | NUR ---
RECEIVED PATIENT sleeping IN BED. NON-VERBAL, FLAT EFFECT. VS WNL. MID-LINE NOTED TO RIGHT UPPER ARM, INTACT. PATIENT WAS ON [address] DORADO ASKED TO TAKE HIM OFF THE OXYGEN AND SEE HOW HE WILL TOLERATE IT. WILL CONTINUE TO MONITOR. NO RESP. DISTRESS NOTED. NO S/S OF PAIN OR DISCOMFORT. CALL LIGHT IN REACH. BED ALARM ON.
[2021-11-29] MEDS: MODAFINIL 100 MG TABLET PO SCH (09:00)
[2021-11-29] MEDS: GLUCERNA SHAKE 237 ML CAN PO SCH ×3 (09:00→17:00)
[2021-11-29] MEDS: ENOXAPARIN SODIUM 40 MG/0.4 ML DISP.SYRIN SQ SCH (09:08)
[2021-11-29] MEDS: CLOTRIMAZOLE 1% CREAM 30 GM TUBE TOP SCH ×2 (10:46→17:05)
[2021-11-29 11:32] VITALS: BP 145/87
[2021-11-29 15:59] VITALS: BP 97/73
--- NOTE | 2021-11-29 15:59 | NUR ---
PATIENTS O2 SAT IS 95, TOLERATING WELL BEING ON ROOM AIR. PATIENT JUST GOT INSERTED NG TUBE, TOLERATED PROCEDURE WELL. PATIENT IS AWAKE RIGHT NOW AFTER THE NG TUBE INSERTION. TRIED TO REMOVE THE TUBE WITH HIS HANDS
--- NOTE | 2021-11-29 17:04 | NUR ---
PATIENT WASN'T ADMINISTERED GLUCSERNA OR ORAL MEDICATION BECAUSE HE IS NPO STATUS. HE GOT INSERTED NG TUBE AN HOUR AGO AND JUST HAD HIS CHEST X-RAY TO CHECK THE PLACEMENT OF NG TUBE. STILL WAITING FOR RESULTS FROM X-RAY.
--- NOTE | 2021-11-29 18:58 | NUR ---
Dietary consult recemmended Glucerna 1.2 via Ngtube and can be started now. Dr Elise approved. Also, water flush 200 ml TID was approved by Dr Elise. Keep HOB elevated 45 degree.
[2021-11-29 20:00] VITALS: BP 149/89
[2021-11-29] MEDS: CLOPIDOGREL 75 MG TABLET PO SCH (20:30)
[2021-11-29] MEDS: TAMSULOSIN HCL 0.4 MG CAP.SR.24H PO SCH (20:30)
[2021-11-29] MEDS ORDERED: levETIRAcetam IV 500 MG in IV DEXTROSE 5% 100 ML IV SCH (21:00)
[2021-11-29] MEDS: GLUCERNA 1.2 1000ML LIQUID GT PRN (22:22)
--- NOTE | 2021-11-30 06:00 | NUR ---
UNABLE TO CRUSH PROTONIX FOR NGT ADMINISTRATION. WILL CHANGE TO GT.
[2021-11-30 06:09] VITALS: BP 145/85
[2021-11-30] MEDS: NITROGLYCERIN OINT 1 GM PACKET TP SCH ×3 (06:19→17:03)
[2021-11-30] MEDS: BLOOD SUGAR DIAGNOSTIC 1 EACH STRIP VI SCH ×3 (06:24→17:03)
[2021-11-30] MEDS: INSULIN REGULAR, HUMAN 300 UNIT/3 ML VIAL SQ PRN ×2 (06:24→17:14)
[2021-11-30] MEDS: PANTOPRAZOLE SODIUM 40 MG TABLET.DR PO SCH (06:25)
--- NOTE | 2021-11-30 06:46 | NUR ---
PATIENT ASLEEP IN BED. NGT INTACT AND NOTED TO RIGHT NARES WITH GLUCERNA 1.2 INFUSING WELL. ON ASPIRATION PRECAUTIONS. VS WNL. ON O2 2L NC. SLEPT WELL. HOB ELEVATED AT 45 DEGREES. CALL LIGHT IN REACH. ALL NEEDS ATTENDED. WILL CONTINUE TO MONITOR.
[2021-11-30 07:26] LABS: HEMATOCRIT 32.3 % (36.7-47.1); MEAN CORPUSCULAR HEMOGLOBIN 28.4 uug (23.8-33.4); MEAN CORPUSCULAR VOLUME 86.3 fL (73.0-96.2); PLATELET COUNT (AUTO) 432 K/uL (152-348)
[2021-11-30 07:56] LABS: CARBON DIOXIDE 27 mmol/L (21-32); CHLORIDE 103 mmol/L (98-107); CREATININE 1.4 mg/dL (0.6-1.3); GLUCOSE 167 mg/dL (74-106); MAGNESIUM 1.9 mg/dL (1.8-2.4); PHOSPHOROUS 2.8 mg/dL (2.5-4.9); POTASSIUM 3.5 mmol/L (3.5-5.1); UREA NITROGEN, BLOOD 27 mg/dL (7-18)
--- NOTE | 2021-11-30 08:00 | NUR ---
Pt NGT audible in stomach. Residual noted 30cc/hr. Pt denies any c/o pain. call light is within reach.
[2021-11-30] MEDS: MODAFINIL 100 MG TABLET PO SCH (08:30)
[2021-11-30] MEDS: ENOXAPARIN SODIUM 40 MG/0.4 ML DISP.SYRIN SQ SCH (08:31)
[2021-11-30] MEDS: GLUCERNA SHAKE 237 ML CAN PO SCH ×3 (08:34→16:34)
[2021-11-30] MEDS: PANTOPRAZOLE ORAL SUSPENSION 40 MG SUSPDR.PKT GT SCH (08:34)
[2021-11-30] MEDS: CLOTRIMAZOLE 1% CREAM 30 GM TUBE TOP SCH ×2 (08:35→16:35)
[2021-11-30] MEDS: levETIRAcetam IV 250 MG in IV DEXTROSE 5% 100 ML IV SCH ×2 (09:11→21:00)
--- NOTE | 2021-11-30 10:00 | NUR ---
Applied z guard on groin and perineal area redness area reposition for comfort.
[2021-11-30 11:00] VITALS: BP 119/86
[2021-11-30 16:00] VITALS: BP 159/91
[2021-11-30] MEDS: GLUCERNA 1.2 1000ML LIQUID GT PRN (17:04)
--- NOTE | 2021-11-30 18:00 | NUR ---
NGT residual remained @ 30cc/hr. Pt repositioned for comfort. Call light is within reach.
[2021-11-30 20:13] VITALS: BP 154/78
[2021-11-30] MEDS: TAMSULOSIN HCL 0.4 MG CAP.SR.24H PO SCH (21:00)
[2021-11-30] MEDS: CLOPIDOGREL 75 MG TABLET PO SCH (21:00)
[2021-12-01] MEDS: BLOOD SUGAR DIAGNOSTIC 1 EACH STRIP VI SCH ×4 (00:22→17:35)
[2021-12-01] MEDS: INSULIN REGULAR, HUMAN 300 UNIT/3 ML VIAL SQ PRN ×3 (00:23→17:37)
[2021-12-01 04:00] VITALS: BP 181/70
[2021-12-01] MEDS: NITROGLYCERIN OINT 1 GM PACKET TP SCH ×3 (06:00→17:31)
[2021-12-01] MEDS: PANTOPRAZOLE ORAL SUSPENSION 40 MG SUSPDR.PKT GT SCH (06:36)
[2021-12-01 06:50] LABS: HEMATOCRIT 35.3 % (36.7-47.1); MEAN CORPUSCULAR HEMOGLOBIN 28.2 uug (23.8-33.4); MEAN CORPUSCULAR VOLUME 86.5 fL (73.0-96.2); PLATELET COUNT (AUTO) 461 K/uL (152-348)
[2021-12-01 07:10] LABS: CARBON DIOXIDE 33 mmol/L (21-32); CHLORIDE 105 mmol/L (98-107); CREATININE 1.5 mg/dL (0.6-1.3); GLUCOSE 189 mg/dL (74-106); MAGNESIUM 1.8 mg/dL (1.8-2.4); PHOSPHOROUS 3.9 mg/dL (2.5-4.9); POTASSIUM 3.9 mmol/L (3.5-5.1); UREA NITROGEN, BLOOD 24 mg/dL (7-18)
--- NOTE | 2021-12-01 08:00 | NUR ---
Aspiration precaution implemented. Mittens on bilaterally. Pt attempting to pull ngt. NGT @ 65 elisa of tube. NGT placement Audible in stomach. Call light is within reach.
[2021-12-01] MEDS: ENOXAPARIN SODIUM 40 MG/0.4 ML DISP.SYRIN SQ SCH (09:10)
[2021-12-01] MEDS: MODAFINIL 100 MG TABLET PO SCH (09:10)
[2021-12-01] MEDS: CLOTRIMAZOLE 1% CREAM 30 GM TUBE TOP SCH ×2 (09:11→17:32)
[2021-12-01] MEDS: GLUCERNA SHAKE 237 ML CAN PO SCH ×3 (09:11→17:32)
[2021-12-01] MEDS: levETIRAcetam IV 250 MG in IV DEXTROSE 5% 100 ML IV SCH ×2 (09:22→20:24)
[2021-12-01 11:42] LABS: *BILIRUBIN,URIN NEGATIVE (NEGATIVE); *CLARITY,URINE CLEAR (CLEAR); *COLOR,URINE YELLOW (YELLOW); *KETONES,URINE 1+ (NEGATIVE); *UROBILINOGEN,URINE 0.2 E.U./dl (NORMAL); LEUKOCYTE ESTERASE ,URINE 1+ (NEGATIVE); NITRITE, URINE NEGATIVE (NEGATIVE); PH,URINE 5.5 (5.0-8.0); UGLUCOSE NEGATIVE (NEGATIVE)
[2021-12-01 11:48] LABS: *BLOOD, URINE TRACE (NEGATIVE)
[2021-12-01 11:54] LABS: ABG BASE EXCESS 3.1 mmol/L; ABG HCO3 26.7 mmol/L; ABG PCO2 37.3 mmHg (35.0-45.0); ABG PH 7.473 (7.350-7.450); ABG PO2 80.6 mmHg (75.0-100.0); ABG SITE RIGHT RADIAL; ABG TOTAL HEMOGLOBIN 11.9 G/dL (13.5-18.0); COHb 0.4 % (0.5-1.5); MetHb 0.1 % (0.0-1.5); O2Hb 96.3 % (94.0-97.0); VENT MODE Nasal Cannula
[2021-12-01 12:10] VITALS: BP 122/52
[2021-12-01] MEDS: PIPERACILLIN SODIUM/TAZOBACTAM 3.375 G in IV DEXTROSE 5% 50 ML IV SCH ×2 (14:07→22:27)
--- NOTE | 2021-12-01 14:08 | NUR ---
Urine specimen sent prior to starting abx. Notified Zulay F/c left in place secondary to pt is retaining urine. When f/c inserted urine output right away was 600cc. Abg resulted and zulay aware.
[2021-12-01 16:17] VITALS: BP 128/55
--- NOTE | 2021-12-01 18:00 | NUR ---
No Seizure noted this shift. Call light is within reach.
--- NOTE | 2021-12-01 18:45 | NUR ---
current NGT residual is 0cc. NGT tube elisa still @ 65 from the nostril. pt reposition for comfort. Call light is within reach.
[2021-12-01 19:33] LABS: BACTERIA,URINE NONE SEEN /HPF (NONE SEEN)
[2021-12-01 19:34] LABS: SQUAMOUS EPITHELIAL CELL,UR FEW /HPF (NONE SEEN); URIC ACID CRYSTALS,URINE MODERATE /HPF (NONE SEEN)
[2021-12-01 20:12] VITALS: BP 120/57
[2021-12-01] MEDS: TAMSULOSIN HCL 0.4 MG CAP.SR.24H PO SCH (20:24)
[2021-12-01] MEDS: CLOPIDOGREL 75 MG TABLET PO SCH (20:24)
--- NOTE | 2021-12-01 21:12 | NUR ---
Patient in bed resting comfortably.HOB elevated. NGT is on right nostril. GT feeding Glucerna 1.2 running at 75ml/hr.Tolerated well. Bilateral soft mittens in place.Midline patent and intact on Right upper arm .F/c draining well with tea colored urine output. Seizures precaution maintained. Call light with in reach .Will continue to monitor.
[2021-12-02] VITALS: BP 104/48
[2021-12-02] MEDS: INSULIN REGULAR, HUMAN 300 UNIT/3 ML VIAL SQ PRN ×5 (00:30→17:27)
[2021-12-02] MEDS: BLOOD SUGAR DIAGNOSTIC 1 EACH STRIP VI SCH ×4 (00:37→17:25)
[2021-12-02] MEDS: NITROGLYCERIN OINT 1 GM PACKET TP SCH ×4 (00:53→17:25)
[2021-12-02 04:00] VITALS: BP 113/64
[2021-12-02] MEDS: PIPERACILLIN SODIUM/TAZOBACTAM 3.375 G in IV DEXTROSE 5% 50 ML IV SCH ×3 (05:07→21:21)
[2021-12-02] MEDS: PANTOPRAZOLE ORAL SUSPENSION 40 MG SUSPDR.PKT GT SCH (06:38)
[2021-12-02 06:51] LABS: MEAN CORPUSCULAR HEMOGLOBIN 28.4 uug (23.8-33.4); PLATELET COUNT (AUTO) 333 K/uL (152-348)
[2021-12-02 07:10] LABS: CARBON DIOXIDE 33 mmol/L (21-32); CHLORIDE 106 mmol/L (98-107); CREATININE 1.9 mg/dL (0.6-1.3); GLUCOSE 197 mg/dL (74-106); MAGNESIUM 1.9 mg/dL (1.8-2.4); PHOSPHOROUS 3.6 mg/dL (2.5-4.9); POTASSIUM 3.6 mmol/L (3.5-5.1); UREA NITROGEN, BLOOD 31 mg/dL (7-18)
[2021-12-02] MEDS: GLUCERNA 1.2 1000ML LIQUID GT PRN (07:10)
--- NOTE | 2021-12-02 08:00 | NUR ---
Aspiration and seizure precaution implemented. Mittens released and taken off as pt is not pulling on his lines.
[2021-12-02] MEDS: MODAFINIL 100 MG TABLET PO SCH (09:04)
[2021-12-02] MEDS: ENOXAPARIN SODIUM 40 MG/0.4 ML DISP.SYRIN SQ SCH (09:04)
[2021-12-02] MEDS: GLUCERNA SHAKE 237 ML CAN PO SCH ×3 (09:05→15:50)
[2021-12-02] MEDS: levETIRAcetam IV 250 MG in IV DEXTROSE 5% 100 ML IV SCH ×2 (09:38→20:57)
[2021-12-02] MEDS: CLOTRIMAZOLE 1% CREAM 30 GM TUBE TOP SCH ×2 (09:38→15:51)
[2021-12-02 11:34] VITALS: BP 110/71
[2021-12-02 16:00] VITALS: BP 116/64
--- NOTE | 2021-12-02 17:00 | NUR ---
Residual 70cc continued with the NGT feeding of Glucerna 1.2 @ 70 cc. 02 tapered to 1 lit via n/c with sat of 97%. Thick white greenish secretions noted.
[2021-12-02 20:07] VITALS: BP 107/32
--- NOTE | 2021-12-02 20:12 | NUR ---
Receive patient in bed awake. Non verbal with NGt on right nostril with residual of 40cc. NGT feeding continued as ordered. kept HOB elevated.Aspiration precaution observed at all times.O2 at 1LPM via NC saturating at 97 %.F/c in place draining well.Due meds given. Seizures precaution maintained.Will continue to monitor.
[2021-12-02] MEDS: CLOPIDOGREL 75 MG TABLET PO SCH (20:24)
[2021-12-02] MEDS: TAMSULOSIN HCL 0.4 MG CAP.SR.24H PO SCH (20:24)
[2021-12-03] MEDS: BLOOD SUGAR DIAGNOSTIC 1 EACH STRIP VI SCH ×4 (00:04→17:35)
[2021-12-03] MEDS: NITROGLYCERIN OINT 1 GM PACKET TP SCH ×4 (00:11→17:21)
[2021-12-03] MEDS: INSULIN REGULAR, HUMAN 300 UNIT/3 ML VIAL SQ PRN ×4 (00:26→17:36)
[2021-12-03] MEDS: GLUCERNA 1.2 1000ML LIQUID GT PRN (04:26)
[2021-12-03 04:27] VITALS: BP 100/45
[2021-12-03] MEDS: PIPERACILLIN SODIUM/TAZOBACTAM 3.375 G in IV DEXTROSE 5% 50 ML IV SCH ×2 (05:37→14:22)
[2021-12-03] MEDS: PANTOPRAZOLE ORAL SUSPENSION 40 MG SUSPDR.PKT GT SCH (06:10)
[2021-12-03 07:06] LABS: CARBON DIOXIDE 32 mmol/L (21-32); CHLORIDE 106 mmol/L (98-107); CREATININE 1.6 mg/dL (0.6-1.3); GLUCOSE 246 mg/dL (74-106); POTASSIUM 3.5 mmol/L (3.5-5.1); UREA NITROGEN, BLOOD 34 mg/dL (7-18)
[2021-12-03 07:24] LABS: HEMATOCRIT 28.4 % (36.7-47.1); MEAN CORPUSCULAR HEMOGLOBIN 28.1 uug (23.8-33.4); MEAN CORPUSCULAR VOLUME 87.2 fL (73.0-96.2); PLATELET COUNT (AUTO) 329 K/uL (152-348)
[2021-12-03] MEDS: APIXABAN 2.5 MG TABLET PO SCH ×2 (08:35→21:10)
[2021-12-03] MEDS: levETIRAcetam IV 250 MG in IV DEXTROSE 5% 100 ML IV SCH ×2 (08:35→21:09)
[2021-12-03] MEDS: GLUCERNA SHAKE 237 ML CAN PO SCH ×3 (08:36→17:00)
[2021-12-03] MEDS: CLOTRIMAZOLE 1% CREAM 30 GM TUBE TOP SCH ×2 (08:37→17:16)
[2021-12-03] MEDS: MODAFINIL 100 MG TABLET PO SCH (08:37)
--- NOTE | 2021-12-03 09:00 | NUR ---
lethargic, just opens eyes when turned, oral care given, mittens off at this time, ngt in place and intact, head elevated, on 1L/nc sat at 96%, right arm upper midland inplace- no swelling/redness noted on site, seen by Dr Harmon, repositioned and kept comfortable, SR X 2 up
--- NOTE | 2021-12-03 10:00 | NUR ---
Glucerna 1.2 started at 70ml/hr via NGT-placement in place, 10 ml residual noted, head of bed elevated
[2021-12-03 11:33] VITALS: BP 117/60
--- NOTE | 2021-12-03 12:04 | NUR ---
WOUND CARE CONSULT/FOLLOW UP: PT PRESENTS WITH RESOLVING RASH AND MOISTURE ASSOCIATED SKIN DAMAGE TO GLUTEAL CREASE. RECOMMENDATIONS MADE FOR SKIN PROTECTION. DISCUSSED WITH NURSING STAFF. MD IN AGREEMENT WITH PLAN OF CARE.
[2021-12-03 15:45] VITALS: BP 134/66
--- NOTE | 2021-12-03 17:58 | NUR ---
repositioned q 2h with heels off loaded with pillows, no residual from tube fdg at 1800, no distress noted, all needs attended and met
[2021-12-03 20:00] VITALS: BP 105/52
--- NOTE | 2021-12-03 20:15 | NUR ---
Patient in bed open eyes but non verbal. Ngt in place.No residual. Continue on GT feeding. Aspiration precaution. On 1L/nc sat at 94%,Off mittens. No episodes of pulling IVs or NGt. Right arm upper midline intact. F/ c draining well.Will continue to monitor.
[2021-12-03] MEDS: TAMSULOSIN HCL 0.4 MG CAP.SR.24H PO SCH (21:09)
[2021-12-03] MEDS: CLOPIDOGREL 75 MG TABLET PO SCH (21:09)
[2021-12-03] MEDS: PIPERACILLIN SODIUM/TAZOBACTAM 3.375 G in IV DEXTROSE 5% 100 ML IV SCH (21:39)
[2021-12-04] MEDS: NITROGLYCERIN OINT 1 GM PACKET TP SCH ×4 (00:22→17:28)
[2021-12-04] MEDS: BLOOD SUGAR DIAGNOSTIC 1 EACH STRIP VI SCH ×4 (00:24→17:49)
[2021-12-04] MEDS: INSULIN REGULAR, HUMAN 300 UNIT/3 ML VIAL SQ PRN ×4 (00:25→17:51)
[2021-12-04] MEDS: GLUCERNA 1.2 1000ML LIQUID GT PRN ×2 (00:59→20:57)
[2021-12-04 04:00] VITALS: BP 132/67
[2021-12-04] MEDS: PIPERACILLIN SODIUM/TAZOBACTAM 3.375 G in IV DEXTROSE 5% 100 ML IV SCH ×3 (05:13→21:50)
[2021-12-04] MEDS: PANTOPRAZOLE ORAL SUSPENSION 40 MG SUSPDR.PKT GT SCH (06:02)
--- NOTE | 2021-12-04 06:03 | NUR ---
Wound care provided.Repositioned patient every 2 hrs .Moaned when changed and repositioned. Kept HOB elevated.Patient noted episode of pulling NGT. Renewed bilateral mittens.Monitor skin circulation. Flushed NGT with water as ordered.All need anticipated and met accordingly. Afebrile throughout the shift.VSS.
[2021-12-04 06:58] LABS: HEMATOCRIT 27.7 % (36.7-47.1); MEAN CORPUSCULAR HEMOGLOBIN 28.9 uug (23.8-33.4); MEAN CORPUSCULAR VOLUME 86.9 fL (73.0-96.2); PLATELET COUNT (AUTO) 334 K/uL (152-348)
[2021-12-04 07:23] LABS: CARBON DIOXIDE 32 mmol/L (21-32); CHLORIDE 104 mmol/L (98-107); CREATININE 1.5 mg/dL (0.6-1.3); GLUCOSE 226 mg/dL (74-106); POTASSIUM 3.7 mmol/L (3.5-5.1); UREA NITROGEN, BLOOD 32 mg/dL (7-18)
[2021-12-04] MEDS: GLUCERNA SHAKE 237 ML CAN PO SCH ×3 (09:00→17:28)
[2021-12-04] MEDS: MODAFINIL 100 MG TABLET PO SCH (09:28)
[2021-12-04] MEDS: CLOTRIMAZOLE 1% CREAM 30 GM TUBE TOP SCH ×2 (09:29→17:28)
[2021-12-04] MEDS: APIXABAN 2.5 MG TABLET PO SCH ×2 (09:29→20:57)
[2021-12-04] MEDS: levETIRAcetam IV 250 MG in IV DEXTROSE 5% 100 ML IV SCH ×2 (09:29→20:55)
[2021-12-04 12:00] VITALS: BP 147/73
[2021-12-04 15:43] VITALS: BP 141/72
[2021-12-04 17:47] LABS: *BILIRUBIN,URIN 3+ (NEGATIVE); *BLOOD, URINE 3+ (NEGATIVE); *CLARITY,URINE TURBID (CLEAR); *COLOR,URINE RED (YELLOW); *KETONES,URINE 1+ (NEGATIVE); *UROBILINOGEN,URINE >=8.0 E.U./dl (NORMAL); LEUKOCYTE ESTERASE ,URINE 3+ (NEGATIVE); NITRITE, URINE NEGATIVE (NEGATIVE); UGLUCOSE TRACE (NEGATIVE)
--- NOTE | 2021-12-04 18:21 | NUR ---
Patient received care well throughout shift with no apparent signs of distress or discomfort. Patient visited by during shift. Patient able to answer yes or no questions, and has begun to speak with language barrier. Patient's HOB elevated with no episodes of pulling NGT. 200cc flush provided TID during shift. No remarkable residual. Wound care provided. IV site patent and intact. Bed left in lowest position. Mittens on due to prevention of patient pulling on NGT. Comfort measures provided. Will endorse information to PM nurse.
[2021-12-04 18:45] LABS: HEMATOCRIT 32.2 % (36.7-47.1); MEAN CORPUSCULAR HEMOGLOBIN 27.5 uug (23.8-33.4); PLATELET COUNT (AUTO) 412 K/uL (152-348)
[2021-12-04] MEDS: ENALAPRILAT DIHYDRATE 1.25 MG/1 ML VIAL IV PRN (19:52)
[2021-12-04 20:00] VITALS: BP 155/74
--- NOTE | 2021-12-04 20:00 | NUR ---
RECEIVED PATIENT AWAKE IN BED. ALERT TO SELF. DAUGHTER AT BEDSIDE. NO S/S OF ANY PAIN OR DISCOMFORT. NO FACIAL GRIMACE NOTED. NO RESP. DISTRESS OR SOB NOTED. PATIENT GIVEN VASOTEC 2.5MG IVP PER WARRANTY MANAGER FOR ELEVATED BP. ALL OTHER VS WNL. NGT TUBE NOTED TO RIGHT NARES, GLUCERNA INFUSING. PATIENT TOLERATING FEEDING WELL. BED ELEVATED AT 45 DEGREES. BED ALARM ON. MID-LINE NOTED TO RIGHT UPPER ARM, INTACT AND PATENT. CALL LIGHT IN REACH. ALL NEEDS ATTENDED. WILL CONTINUE TO MONITOR AND ASSESS.
[2021-12-04] MEDS: CLOPIDOGREL 75 MG TABLET PO SCH (20:57)
[2021-12-04] MEDS: TAMSULOSIN HCL 0.4 MG CAP.SR.24H PO SCH (20:57)
[2021-12-04 21:03] LABS: BACTERIA,URINE MODERATE /HPF (NONE SEEN); RBC,URINE TNTC /HPF (0-3); SQUAMOUS EPITHELIAL CELL,UR MODERATE /HPF (NONE SEEN); WBC,URINE TNTC /HPF (0-3)
[2021-12-05] VITALS: BP 114/71
[2021-12-05] MEDS: NITROGLYCERIN OINT 1 GM PACKET TP SCH ×4 (00:48→17:45)
[2021-12-05] MEDS: INSULIN REGULAR, HUMAN 300 UNIT/3 ML VIAL SQ PRN ×4 (00:56→17:37)
[2021-12-05] MEDS: BLOOD SUGAR DIAGNOSTIC 1 EACH STRIP VI SCH ×4 (00:56→17:29)
[2021-12-05 04:00] VITALS: BP 118/54
[2021-12-05] MEDS: PIPERACILLIN SODIUM/TAZOBACTAM 3.375 G in IV DEXTROSE 5% 100 ML IV SCH ×3 (05:34→22:28)
[2021-12-05] MEDS: PANTOPRAZOLE ORAL SUSPENSION 40 MG SUSPDR.PKT GT SCH (06:18)
[2021-12-05 06:50] LABS: HEMATOCRIT 30.3 % (36.7-47.1); MEAN CORPUSCULAR HEMOGLOBIN 28.4 uug (23.8-33.4); MEAN CORPUSCULAR VOLUME 86.4 fL (73.0-96.2); PLATELET COUNT (AUTO) 374 K/uL (152-348)
[2021-12-05 07:05] LABS: CARBON DIOXIDE 36 mmol/L (21-32); CHLORIDE 103 mmol/L (98-107); CREATININE 1.4 mg/dL (0.6-1.3); GLUCOSE 152 mg/dL (74-106); POTASSIUM 3.9 mmol/L (3.5-5.1); UREA NITROGEN, BLOOD 28 mg/dL (7-18)
--- NOTE | 2021-12-05 07:35 | NUR ---
Patient is sleeping comfortably in bed, easily woken, non verbal at this time. No SOB noted. No s/s of pain or discomfort, HOB up, NGT to right nare infusing Glucerna 1.2 at 70cc/hr, aspiration precautions followed. All needs attended by staff, call light within reach.
[2021-12-05] MEDS: APIXABAN 2.5 MG TABLET PO SCH ×2 (09:13→21:32)
[2021-12-05] MEDS: levETIRAcetam IV 250 MG in IV DEXTROSE 5% 100 ML IV SCH ×2 (09:14→21:36)
[2021-12-05] MEDS: MODAFINIL 100 MG TABLET PO SCH (09:14)
[2021-12-05] MEDS: CLOTRIMAZOLE 1% CREAM 30 GM TUBE TOP SCH ×2 (09:15→16:43)
[2021-12-05 10:12] VITALS: BP 132/55
--- NOTE | 2021-12-05 11:00 | NUR ---
Patient remains lethargic, in no respiratory distress. Dr. Connell in unit to assess patient, per shift engineer report, has agreed to PEG tube placement. Dr. Connell spoke to Luzma Salvador NP and states Dr. Connell will wait to do surgery until Wednesday so that aspiration pneumonia may be treated prior to PEG placement. aware and will provide consent when she visits patient.
[2021-12-05] MEDS ORDERED: FUROSEMIDE 20 MG/2 ML VIAL IV ONE (14:00)
[2021-12-05 15:17] VITALS: BP 144/50
--- NOTE | 2021-12-05 18:00 | NUR ---
Daughter at bedside, updated on health status along with on the phone. per she will come sign PEG tube consent form before Wednesday.
[2021-12-05 21:08] VITALS: BP 157/75
[2021-12-05] MEDS: CLOPIDOGREL 75 MG TABLET PO SCH (21:34)
[2021-12-05] MEDS: TAMSULOSIN HCL 0.4 MG CAP.SR.24H PO SCH (21:34)
[2021-12-05] MEDS: GLUCERNA 1.2 1000ML LIQUID GT PRN (23:09)
[2021-12-06] MEDS: NITROGLYCERIN OINT 1 GM PACKET TP SCH ×5 (00:17→23:35)
[2021-12-06] MEDS: BLOOD SUGAR DIAGNOSTIC 1 EACH STRIP VI SCH ×5 (00:24→23:36)
[2021-12-06] MEDS: INSULIN REGULAR, HUMAN 300 UNIT/3 ML VIAL SQ PRN ×5 (00:25→23:38)
[2021-12-06 04:36] VITALS: BP 104/58
[2021-12-06] MEDS: PIPERACILLIN SODIUM/TAZOBACTAM 3.375 G in IV DEXTROSE 5% 100 ML IV SCH ×3 (06:04→22:57)
[2021-12-06] MEDS: PANTOPRAZOLE ORAL SUSPENSION 40 MG SUSPDR.PKT GT SCH (06:15)
[2021-12-06 08:32] LABS: HEMATOCRIT 30.2 % (36.7-47.1); MEAN CORPUSCULAR HEMOGLOBIN 28.3 uug (23.8-33.4); MEAN CORPUSCULAR VOLUME 86.1 fL (73.0-96.2); PLATELET COUNT (AUTO) 385 K/uL (152-348)
[2021-12-06 08:34] LABS: CARBON DIOXIDE 35 mmol/L (21-32); CHLORIDE 101 mmol/L (98-107); CREATININE 1.5 mg/dL (0.6-1.3); GLUCOSE 203 mg/dL (74-106); POTASSIUM 3.8 mmol/L (3.5-5.1); UREA NITROGEN, BLOOD 27 mg/dL (7-18)
[2021-12-06] MEDS: MODAFINIL 100 MG TABLET PO SCH (08:48)
[2021-12-06] MEDS: APIXABAN 2.5 MG TABLET PO SCH ×2 (08:49→21:15)
[2021-12-06] MEDS: CLOTRIMAZOLE 1% CREAM 30 GM TUBE TOP SCH ×2 (09:24→17:17)
[2021-12-06] MEDS: levETIRAcetam IV 250 MG in IV DEXTROSE 5% 100 ML IV SCH ×2 (09:24→21:15)
[2021-12-06] MEDS: FUROSEMIDE 20 MG TABLET PO SCH (10:37)
[2021-12-06 12:00] VITALS: BP 150/55
[2021-12-06] MEDS: FLUCONAZOLE 100 MG TABLET PO SCH (14:42)
[2021-12-06] MEDS: GLUCERNA 1.2 1000ML LIQUID GT PRN (15:32)
--- NOTE | 2021-12-06 16:00 | NUR ---
Inc. moderate amount of soft stool x2 this shift with diaper and linen change. Repositioned q 2-3 hours.
[2021-12-06 16:56] VITALS: BP 143/62
--- NOTE | 2021-12-06 19:20 | NUR ---
RECEIVED PATIENT IN BED. AWAKE, ALERT, WITH LIMITED POLISH. ON ROOM AIR, SHOWS NO SIGNS OF SOB. WITH JOSE ML PATENT AND INTACT. WITH NGT TUBE FEEDING, TOLERATING WELL. WITH IGLESIAS CATHETER, DRAINING YELLOW URINE. SEIZURE PRECAUTIONS INITIATED. SAFETY PRECAUTIONS INT PLACE. CALL LIGHT WITHIN REACH.
[2021-12-06 20:00] VITALS: BP 164/70
[2021-12-06] MEDS: TAMSULOSIN HCL 0.4 MG CAP.SR.24H PO SCH (21:15)
[2021-12-06] MEDS: CLOPIDOGREL 75 MG TABLET PO SCH (21:15)
[2021-12-06] MEDS: ENALAPRILAT DIHYDRATE 1.25 MG/1 ML VIAL IV PRN (21:16)
[2021-12-07 04:36] VITALS: BP 125/68
[2021-12-07] MEDS: PIPERACILLIN SODIUM/TAZOBACTAM 3.375 G in IV DEXTROSE 5% 100 ML IV SCH ×3 (05:49→22:21)
[2021-12-07] MEDS: PANTOPRAZOLE ORAL SUSPENSION 40 MG SUSPDR.PKT GT SCH (06:28)
[2021-12-07] MEDS: BLOOD SUGAR DIAGNOSTIC 1 EACH STRIP VI SCH ×4 (06:32→23:56)
[2021-12-07] MEDS: INSULIN REGULAR, HUMAN 300 UNIT/3 ML VIAL SQ PRN ×3 (06:35→17:22)
[2021-12-07] MEDS: NITROGLYCERIN OINT 1 GM PACKET TP SCH ×3 (06:40→17:28)
--- NOTE | 2021-12-07 06:54 | NUR ---
PATIENT SHOWS NO ACUTE DISTRESS AT THIS TIME. IV ACCESS PATENT AND INTACT. NGTUBE, PATENT AND INTACT, FLUSHED WITH 200CC/HR. WOUND CARE DONE. SAFETY PRECAUTIONS, SEIZURE AND ASPIRATION PRECAUTIONS MAINTAINED.
[2021-12-07 07:23] LABS: HEMATOCRIT 31.1 % (36.7-47.1); MEAN CORPUSCULAR VOLUME 85.8 fL (73.0-96.2); PLATELET COUNT (AUTO) 387 K/uL (152-348)
[2021-12-07 07:31] LABS: CARBON DIOXIDE 35 mmol/L (21-32); CHLORIDE 100 mmol/L (98-107); CREATININE 1.5 mg/dL (0.6-1.3); GLUCOSE 230 mg/dL (74-106); POTASSIUM 3.9 mmol/L (3.5-5.1); UREA NITROGEN, BLOOD 25 mg/dL (7-18)
[2021-12-07] MEDS: FLUCONAZOLE 100 MG TABLET PO SCH (09:11)
[2021-12-07] MEDS: MODAFINIL 100 MG TABLET PO SCH (09:11)
[2021-12-07] MEDS: APIXABAN 2.5 MG TABLET PO SCH ×2 (09:13→21:18)
[2021-12-07] MEDS: FUROSEMIDE 20 MG TABLET PO SCH (09:16)
[2021-12-07] MEDS: CLOTRIMAZOLE 1% CREAM 30 GM TUBE TOP SCH ×2 (09:19→17:21)
[2021-12-07] MEDS: levETIRAcetam IV 250 MG in IV DEXTROSE 5% 100 ML IV SCH ×2 (09:19→21:18)
[2021-12-07 11:34] VITALS: BP 146/67
[2021-12-07 16:00] VITALS: BP 133/71
--- NOTE | 2021-12-07 20:00 | NUR ---
RECEIVED PATIENT IN BED. AAOX2, WITH LIMITED LITHUANIAN. EASILY AROUSED. NG TUBE FEEDING PATENT AND INTACT. PT TOLERATING FEEDING WELL. PATIENT SHOWS NO SIGNS OF SOB, CHEST PAIN OR DIZZINESS. ASPIRATION AND SEIZURE PRECAUTIONS INITIATED. CALL LIGHT WITHIN REACH.
[2021-12-07 20:12] VITALS: BP 129/51
[2021-12-07] MEDS: REMEDY ESSENTIAL ZINC PASTE 113 GM TP PRN (21:00)
[2021-12-07] MEDS: CLOPIDOGREL 75 MG TABLET PO SCH (21:18)
[2021-12-07] MEDS: TAMSULOSIN HCL 0.4 MG CAP.SR.24H PO SCH (21:18)
[2021-12-08] MEDS: INSULIN REGULAR, HUMAN 300 UNIT/3 ML VIAL SQ PRN ×4 (00:03→17:25)
[2021-12-08 04:12] VITALS: BP 120/72
[2021-12-08] MEDS: BLOOD SUGAR DIAGNOSTIC 1 EACH STRIP VI SCH ×3 (06:00→17:22)
[2021-12-08] MEDS: NITROGLYCERIN OINT 1 GM PACKET TP SCH ×4 (06:04→17:23)
[2021-12-08] MEDS: PANTOPRAZOLE ORAL SUSPENSION 40 MG SUSPDR.PKT GT SCH (06:07)
--- NOTE | 2021-12-08 06:20 | NUR ---
PATIENT SLEPT THROUGH THE NIGHT WITH NO COMPLAINTS. IV ACCESS PATENT AND INTACT. NGTUBE FEEDING INTACT. FLUSHED 200CC OF WATER. BILATERAL SOFT MITTENS ORDER RENEWED. SAFETY AND ASPIRATION PRECAUTIONS MAINTAINED.
[2021-12-08 07:01] LABS: HEMATOCRIT 31.9 % (36.7-47.1); MEAN CORPUSCULAR HEMOGLOBIN 28.2 uug (23.8-33.4); MEAN CORPUSCULAR VOLUME 85.7 fL (73.0-96.2); PLATELET COUNT (AUTO) 393 K/uL (152-348)
[2021-12-08 07:23] LABS: CARBON DIOXIDE 33 mmol/L (21-32); CHLORIDE 98 mmol/L (98-107); CREATININE 1.6 mg/dL (0.6-1.3); GLUCOSE 226 mg/dL (74-106); UREA NITROGEN, BLOOD 26 mg/dL (7-18)
--- NOTE | 2021-12-08 07:30 | NUR ---
Sleeping, appears comfortable. NGT with Glucerna. On moderate high back rest. With bilateral hand mittens, monitored per protocol.
[2021-12-08] MEDS: APIXABAN 2.5 MG TABLET PO SCH (09:00)
--- NOTE | 2021-12-08 10:00 | NUR ---
For PEG placement, telephone consent signed by spouse
[2021-12-08] MEDS: MODAFINIL 100 MG TABLET PO SCH (10:08)
[2021-12-08] MEDS: FLUCONAZOLE 100 MG TABLET PO SCH (10:08)
[2021-12-08] MEDS: CLOTRIMAZOLE 1% CREAM 30 GM TUBE TOP SCH ×2 (10:15→17:22)
[2021-12-08] MEDS: levETIRAcetam IV 250 MG in IV DEXTROSE 5% 100 ML IV SCH ×2 (10:15→21:04)
[2021-12-08] MEDS: FUROSEMIDE 20 MG TABLET PO SCH (10:15)
[2021-12-08 11:32] VITALS: BP 150/77
[2021-12-08 16:00] VITALS: BP 134/61
--- NOTE | 2021-12-08 17:00 | NUR ---
Patient awake, verbally responsive, verbalized needs appropriately
--- NOTE | 2021-12-08 18:45 | NUR ---
To OR by bed.
[2021-12-08 20:00] VITALS: BP 135/72
--- NOTE | 2021-12-08 20:30 | NUR ---
Patient back from procedure, patient awake, verbally responsive, no s/s of pain no s/s of discomfort, with new order of nothing via GT except meds, start gt in am, abdominal binder.
[2021-12-08] MEDS: CLOPIDOGREL 75 MG TABLET GT SCH (20:58)
[2021-12-08] MEDS: DOXAZOSIN 1 MG TABLET PO SCH (20:59)
[2021-12-08] MEDS: APIXABAN 2.5 MG TABLET GT SCH (21:00)
[2021-12-08] MEDS: ACETAMINOPHEN 325 MG TABLET GT PRN (21:03)
[2021-12-08] MEDS: ACIDOPHILUS/BULGARICUS CHEW TAB GT SCH (21:03)
--- NOTE | 2021-12-08 21:42 | NUR ---
Luzma Salvador BRANCH OPERATIONS COORDINATOR ordered to hold [place] for [employer].
[2021-12-09] MEDS: BLOOD SUGAR DIAGNOSTIC 1 EACH STRIP VI SCH ×5 (00:54→23:39)
[2021-12-09] MEDS: NITROGLYCERIN OINT 1 GM PACKET TP SCH ×5 (01:07→23:39)
[2021-12-09] MEDS: INSULIN REGULAR, HUMAN 300 UNIT/3 ML VIAL SQ PRN ×4 (01:14→23:42)
[2021-12-09 04:00] VITALS: BP 136/74
--- NOTE | 2021-12-09 05:48 | NUR ---
Patient asleep but arousable, no sob no chest pain, GT intact, dressing intact, abdominal binder in place, hand mittens in place, check for placement and circulations, Patient remains on No GTF still except meds, until further order, afebrile, no s/s of pain, turn and reposition, kept comfortable, cont to monitor.
[2021-12-09] MEDS: ACIDOPHILUS/BULGARICUS CHEW TAB GT SCH ×3 (06:11→21:26)
[2021-12-09] MEDS: PANTOPRAZOLE ORAL SUSPENSION 40 MG SUSPDR.PKT GT SCH (06:15)
[2021-12-09 06:19] LABS: HEMATOCRIT 32.5 % (36.7-47.1); MEAN CORPUSCULAR VOLUME 86.7 fL (73.0-96.2); PLATELET COUNT (AUTO) 398 K/uL (152-348)
[2021-12-09 06:47] LABS: CARBON DIOXIDE 35 mmol/L (21-32); CHLORIDE 99 mmol/L (98-107); CREATININE 1.8 mg/dL (0.6-1.3); GLUCOSE 127 mg/dL (74-106); POTASSIUM 3.8 mmol/L (3.5-5.1); UREA NITROGEN, BLOOD 28 mg/dL (7-18)
[2021-12-09] MEDS: GLUCERNA 1.2 1000ML LIQUID GT PRN ×2 (07:00→10:00)
[2021-12-09] MEDS: FLUCONAZOLE 100 MG TABLET GT SCH (08:42)
[2021-12-09] MEDS: MODAFINIL 100 MG TABLET GT SCH (08:42)
[2021-12-09] MEDS: CLOTRIMAZOLE 1% CREAM 30 GM TUBE TOP SCH ×2 (08:48→17:30)
[2021-12-09] MEDS ORDERED: FUROSEMIDE 20 MG TABLET GT SCH (09:00)
[2021-12-09] MEDS: APIXABAN 2.5 MG TABLET GT SCH ×2 (09:00→21:00)
[2021-12-09] MEDS: levETIRAcetam IV 250 MG in IV DEXTROSE 5% 100 ML IV SCH ×2 (09:30→20:03)
--- NOTE | 2021-12-09 10:29 | NUR ---
cecy not given- still to hold for shirley per hospitalist Poncho Jimenez
[2021-12-09 11:32] VITALS: BP 106/69
--- NOTE | 2021-12-09 14:00 | NUR ---
checked residual prior med given- obtained 210- turned fdg at this time, hospitalist Cash Jimenez informed, to start fdg at 30ml after an hour
[2021-12-09 16:00] VITALS: BP 158/67
--- NOTE | 2021-12-09 17:30 | NUR ---
repositioned with pillows for support, heels off loaded with pillows, no residual from fdg, rate at 40ml/hr, head of bed elevated, answered simple questions, no bleeding noted, on 2l/nc sat at 96%, all needs attended and met
--- NOTE | 2021-12-09 18:33 | NUR ---
here visiting, able to say some words , no distress noted, safety measures maintained
[2021-12-09 20:00] VITALS: BP 149/83
[2021-12-09] MEDS: ACETAMINOPHEN 325 MG TABLET GT PRN (20:03)
[2021-12-09] MEDS: DOXAZOSIN 1 MG TABLET PO SCH (20:04)
--- NOTE | 2021-12-09 21:25 | NUR ---
EliAdeyoh meds continue to hold per Vish Uriarte NP.
[2021-12-09] MEDS: CLOPIDOGREL 75 MG TABLET GT SCH (21:26)
[2021-12-10] VITALS: BP 130/67
[2021-12-10 04:00] VITALS: BP 139/74
[2021-12-10] MEDS: ACIDOPHILUS/BULGARICUS CHEW TAB GT SCH ×2 (05:19→14:05)
[2021-12-10] MEDS: NITROGLYCERIN OINT 1 GM PACKET TP SCH ×3 (05:20→18:32)
[2021-12-10] MEDS: BLOOD SUGAR DIAGNOSTIC 1 EACH STRIP VI SCH ×3 (05:33→18:36)
[2021-12-10] MEDS: INSULIN REGULAR, HUMAN 300 UNIT/3 ML VIAL SQ PRN ×3 (05:36→18:40)
[2021-12-10] MEDS: PANTOPRAZOLE ORAL SUSPENSION 40 MG SUSPDR.PKT GT SCH (06:45)
[2021-12-10 07:00] LABS: MEAN CORPUSCULAR HEMOGLOBIN 27.8 uug (23.8-33.4); MEAN CORPUSCULAR VOLUME 85.8 fL (73.0-96.2); PLATELET COUNT (AUTO) 406 K/uL (152-348)
--- NOTE | 2021-12-10 07:40 | NUR ---
RECEIVED PT ON BED SLEEPING; ON 2L NC SATURATING AT 98-100%; TINY MITTEN ON PT TRYING TO TO PULL LINES AND PEG TUBE PEC NOC SHIFT; VITALS WNL;NO ACUTE DISTRESS NOTED; ON GTUBE GLUCERNA 70CC/HR;
[2021-12-10 07:48] LABS: CARBON DIOXIDE 35 mmol/L (21-32); CHLORIDE 100 mmol/L (98-107); CREATININE 1.7 mg/dL (0.6-1.3); GLUCOSE 185 mg/dL (74-106); MAGNESIUM 2.2 mg/dL (1.8-2.4); POTASSIUM 3.8 mmol/L (3.5-5.1); UREA NITROGEN, BLOOD 31 mg/dL (7-18)
[2021-12-10] MEDS ORDERED: FUROSEMIDE 20 MG TABLET GT SCH (09:00)
[2021-12-10] MEDS ORDERED: FERROUS SULFATE 325 MG TABEC PO SCH (09:00)
[2021-12-10] MEDS: MODAFINIL 100 MG TABLET GT SCH (09:59)
[2021-12-10] MEDS: FLUCONAZOLE 100 MG TABLET GT SCH (09:59)
[2021-12-10] MEDS ORDERED: FERROUS SULFATE 300 MG/5 ML LIQUID UDC GT SCH (10:03)
[2021-12-10] MEDS: APIXABAN 2.5 MG TABLET GT SCH (10:06)
[2021-12-10] MEDS: CLOTRIMAZOLE 1% CREAM 30 GM TUBE TOP SCH ×2 (10:08→17:25)
[2021-12-10] MEDS ORDERED: levETIRAcetam IV 250 MG in IV DEXTROSE 5% 100 ML IV ONE (10:15)
[2021-12-10 12:00] VITALS: BP 142/73
[2021-12-10] MEDS ORDERED: FERR300L GT (13:25)
[2021-12-10] MEDS ORDERED: CLOP75TA33 GT (13:25)
[2021-12-10] MEDS ORDERED: FURO20TA4 GT (13:25)
[2021-12-10] MEDS ORDERED: FLUC100T GT (13:25)
[2021-12-10] MEDS ORDERED: CLOT30CR24 TOP (13:25)
[2021-12-10] MEDS ORDERED: Glucerna 1.2 GT (13:31)
[2021-12-10] MEDS: GLUCERNA 1.2 1000ML LIQUID GT PRN (13:59)
[2021-12-10 16:19] VITALS: BP 136/62
[2021-12-10] MEDS ORDERED: Blood Sugar Diagnostic VI (18:31)
[2021-12-10] MEDS ORDERED: INSU100V28 SQ (18:31)
[2021-12-10 20:00] VITALS: BP 116/50
--- NOTE | 2021-12-10 20:49 | NUR ---
PT WAS DISCHARGE REPORT GIVEN TO EMT. PT IS STABLE. VITALS WNL. ALL BELONGINGS ACCOUNTED FOR. IV ACCESS WAS REMOVED. ALERT BUT CONFUSED. PT WILL GO TO [facility].
[2021-12-10] MEDS ORDERED: levETIRAcetam 500 MG/5 ML LIQUID UDC GT SCH (21:00)
== END 2021-12-10 20:45 | DRG 177 ==
LOC: CCU 23:30 → TELE-TD3 11-18 07:57 → TELE3 11-19 09:59 → CCU 11-25 04:39 → TELE3 11-26 23:15 → MEDSURG3 11-28 08:55
PROVIDERS: ADMIT Internal Medicine; ATTEND Nurse Practitioner Family
PROC: 0DH63UZ Insertion of Feeding Device into Stomach, Percutaneous Approach (ICD-10-PCS; principal; 2021-12-08)
DX: J69.0 Pneumonitis due to inhalation of food and vomit (principal); G93.41 Metabolic encephalopathy; J96.21 Acute and chronic respiratory failure with hypoxia; N17.0 Acute kidney failure with tubular necrosis; I50.23 Acute on chronic systolic (congestive) heart failure; I13.0 Hypertensive heart and chronic kidney disease with heart failure and stage 1 through stage 4 chronic kidney disease, or unspecified chronic kidney disease; N39.0 Urinary tract infection, site not specified; D68.59 Other primary thrombophilia; I48.20 Chronic atrial fibrillation, unspecified; J98.11 Atelectasis; B37.49 Other urogenital candidiasis; J15.9 Unspecified bacterial pneumonia; D63.8 Anemia in other chronic diseases classified elsewhere; E11.22 Type 2 diabetes mellitus with diabetic chronic kidney disease; E66.01 Morbid (severe) obesity due to excess calories; E78.5 Hyperlipidemia, unspecified; F01.50 Vascular dementia, unspecified severity, without behavioral disturbance, psychotic disturbance, mood disturbance, and anxiety; G40.909 Epilepsy, unspecified, not intractable, without status epilepticus; I25.5 Ischemic cardiomyopathy; N18.2 Chronic kidney disease, stage 2 (mild); N28.1 Cyst of kidney, acquired; R13.10 Dysphagia, unspecified; Z79.01 Long term (current) use of anticoagulants; Z95.1 Presence of aortocoronary bypass graft; I25.10 Atherosclerotic heart disease of native coronary artery without angina pectoris; Z87.891 Personal history of nicotine dependence; Z74.09 Other reduced mobility; N40.1 Benign prostatic hyperplasia with lower urinary tract symptoms; Z88.1 Allergy status to other antibiotic agents; G93.89 Other specified disorders of brain; K29.70 Gastritis, unspecified, without bleeding; Z87.440 Personal history of urinary (tract) infections; Z86.73 Personal history of transient ischemic attack (TIA), and cerebral infarction without residual deficits; Z68.31 Body mass index [BMI] 31.0-31.9, adult
CPT/HCPCS: 36415; 36600; 43761; 70450; 70551; 71045; 76770; 83735; 84100; 84156; 84300; 85025; 85610; 85730; 87040; 87086; 94664; 97161; 97535-GO-CO; A6209; A6213; C1758; C9113; G0378; J0692; J0696; J1644; J1650; J1815; J1940; J1953; J2405; J2543; J3475; J3480; J3490; J7040; J7050; J7120